=== PATIENT | female | born 2005 | race Hispanic/Latino ===

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

== ENCOUNTER 2023-01-23 15:32 | Emergency (ER) | payer OTHER, SELFPAY ==
--- OUTSIDE RECORDS SUMMARY | 2023-01-23 15:35 | XMS REPORT | Continuity of Care Document ---
:2005 Author Organization [facility] t Address [address] [facility] [address] [place] [address] Care Team Providers Name Role Phone [facility] Primary [facility] Physician Lab, Ang - Db Attending Clinician Unavailable Saige Madden NP Attending Clinician SAIGE MADDEN Attending Clinician Unavailable Doctor Unassigned, [place] Attending Clinician Unavailable Payers Payer Name Policy Type Policy Number Effective Date Expiration Date S ource Problems Condition Condition Condition Status Onset Resolution Last Treating Co mments Source Name Details Category Date Date Treatment Clinician Date Well woman Well woman Disease Active U nivers exam exam 11-07 ity of 00:: [address] BMI BMI Disease Active Univers 25.0-25.9, 25.0-25.9, 11-07 it y of adult adult 00:00: [address] Allergies, Adverse Reactions, Alerts Allergy Allergy Status Severity Reaction(s) Onset Inactive Treating Comm ents Source Name Type Date Date Clinician NO KNOWN Drug Active Univers ALLERGIE Class ity of S [facility] Social History Social Habit Start Date Stop Date Quantity Comments Source History of Cigarette Smoker Universi ty of tobacco use [facility] Exposure to 2022-10-28 2022-11-07 Not sure University of SARS-CoV-2 00:00:00 08:34:[address] [facility] (event) [place] Tobacco use and 2022-11-07 2022-11-07 Smokeless tobacco Un iversity of exposure 00:00:00 00:00:00 non-[address] [facility] Alcohol intake 2022-11-07 2022-11-07 Current drinker Unive rsity of 00:00:00 00:00:[address] [facility] (finding) [place] Tobacco Comment 2022-11-07 2022-11-07 1 cigg a day Univers ity of 00:00:00 00:00:[address] [facility] Alcohol Comment 2022-11-07 2022-11-07 weekends Universit y of 00:00:00 00:00:[address] [facility] Sex Assigned At [birth year] Universit y of 00:00:00 00:00:[address] [facility] Smoking Status Start Date Stop Date Source Tobacco smoking consumption Univ ersity of [facility] unknown [place] Smokes tobacco daily 2022-11-07 00:00:[address] [facility] Medications Ordered Filled Start Stop Current Ordering Indication Dosage Frequency Signature Comments Components Source Medication Medication Date Date Medication? Clinician (SIG) Name Name ondansetron 2015-0 Yes 4mg Take 1 Tab Univers (ZOFRAN, 8- by mouth ity of HYDROCHLORI 00:00: every 8 [place],) 4 mg 00 (eight) Medical tablet hours as Branch needed for Nausea and Vomiting (N/V). dicyclomine 2015-0 Yes 10mg Take 1 Cap Univers (BENTYL) 10 8-01 by mouth ity of mg capsule 00:00: [place] 6 [place] (six[place] Medical hours as Branch needed for Abdominal pain. ondansetron 2015-0 Yes 4mg Take 1 Tab Univers (ZOFRAN, 8-01 by mouth ity of HYDROCHLORI 00:00: every 8 [place],) 4 mg 00 (eight) Medical tablet hours as Branch needed for Nausea and Vomiting (N/V). dicyclomine 2015-0 Yes 10mg Take 1 Cap Univers (BENTYL) 10 8-01 by mouth ity of mg capsule 00:00: [place] 6 [place] (six) Medical hours as Branch needed for Abdominal pain. ondansetron 2015-0 Yes 4mg Take 1 Tab Univers (ZOFRAN, 8-01 by mouth ity of HYDROCHLORI 00:00: every 8 [place],) 4 mg 00 (eight) Medical tablet hours as Branch needed for Nausea and Vomiting (N/V). dicyclomine 2015-0 Yes 10mg Take 1 Cap Univers (BENTYL) 10 8- by mouth ity of mg capsule 00:00: [place] 6 [place] (six) Medical hours as Branch needed for Abdominal pain. ondansetron Yes 4mg Take 1 Tab Univers (ZOFRAN, 02-06 by mouth ity of HYDROCHLORI 00:00: every 8 [place],) 4 mg 00 (eight) Medical tablet hours as Branch needed for Nausea and Vomiting (N/V). dicyclomine Yes 10mg Take 1 Cap Univers (BENTYL) 10 8- by mouth ity of mg capsule 00:00: [place] 6 [place] 00 (six) Medical hours as Branch needed for Abdominal pain. Immunizations Ordered Immunization Filled Immunization Date Status Commen ts Source Name Name SARS-COV-2 COVID-19 2022-03-18 Completed Unive rsity of PFIZER MARSHA-SUCROSE 00:00:00 [place] [facility] VACCINE ([place] TOP) Branch SARS-COV-2 COVID-19 2022-03-18 Completed Unive rsity of PFIZER MARSHA-SUCROSE 00:00:00 [place] [facility] VACCINE ([place] TOP) Branch SARS-COV-2 COVID-19 2022-03-18 Completed Unive rsity of PFIZER MARSHA-SUCROSE 00:00:00 [place] [facility] VACCINE ([place] TOP) Branch Influenza Virus 2022-02-25 Completed Universit y of Vaccine Quad .5 mL IM 00:00:00 [place] as Medical 6+ MO Branch SARS-COV-2 COVID-19 2022-02-25 Completed Unive rsity of PFIZER MARSHA-SUCROSE 00:00:00 [place] [facility] VACCINE ([place] TOP) Branch Influenza Virus 2022-02-25 Completed Universit y of Vaccine Quad .5 mL IM 00:00:00 [place] Medical 6+ MO Branch SARS-COV-2 COVID-19 2022-02-25 Completed Unive rsity of PFIZER MARSHA-SUCROSE 00:00:00 [place] [facility] VACCINE (CAROL[place] TOP) Branch Influenza Virus 2022-02-25 Completed Universit y of Vaccine Quad .5 mL IM 00:00:00 [place] Medical 6+ MO Branch SARS-COV-2 COVID-19 2022-02-25 Completed Unive rsity of PFIZER MARSHA-SUCROSE 00:00:00 [place] [facility] VACCINE (CAR[place] TOP) Branch HPV9 2021-02-25 Completed University of 00:00:[address] [facility] Meningococcal B, OMV 2021-02-25 Completed Univ ersity of 00:00:[address] [facility] TDAP 2021-02-25 Completed University of 00:00:[address] [facility] Branch HPV9 2021-02-25 Completed University of 00:00:[address] [facility] Meningococcal B, OMV 2021-02-25 Completed Univ ersity of 00:00:[address] [facility] TDAP 2021-02-25 Completed University of 00:00:[address] [facility] Branch HPV9 2021-02-25 Completed University of 00:00:[address] [facility] Meningococcal B, OMV 2021-02-25 Completed Univ ersity of 00:00:[address] [facility] TDAP 2021-02-25 Completed University of 00:00:[address] [facility] Meningococcal 2021-02-17 Completed University of Polysaccharide 00:00:00 [place] [facility] (groups A, C, Y and Branc h W-135) conjugate vaccine (MCV4P) Meningococcal 2021-02-17 Completed University of Polysaccharide 00:00:00 [place] [facility] (groups A, C, Y and Branc h W-135) conjugate vaccine (MCV4P) Meningococcal 2021-02-17 Completed University of Polysaccharide 00:00:00 [place] [facility] (groups A, C, Y and Branc h W-135) conjugate vaccine (MCV4P) HPV9 2020-11-22 Completed University of 00:00:[address] [facility] Meningococcal 2020-11-22 Completed University of Polysaccharide 00:00:00 [place] [facility] (groups A, C, Y and Branc h W-135) conjugate vaccine (MCV4P) Meningococcal B, OMV 2020-11-22 Completed Univ ersity of 00:00:[address] [facility] HPV9 2020-11-22 Completed University of 00:00:[address] [facility] Meningococcal 2020-11-22 Completed University of Polysaccharide 00:00:00 [place] [facility] (groups A, C, Y and Branc h W-135) conjugate vaccine (MCV4P) Meningococcal B, OMV 2020-11-22 Completed Univ ersity of 00:00:[address] [facility] HPV9 2020-11-22 Completed University of 00:00:[address] [facility] Meningococcal 2020-11-22 Completed University of Polysaccharide 00:00:00 [facility] dimas (groups A, C, Y and Branc h W-135) conjugate vaccine (MCV4P) Meningococcal B, OMV 2020-11-22 Completed Univ ersity of 00:00:[address] [facility] DTAP 2008-02-20 Completed University of 00:00:[address] [facility] HEPATITIS A 2008-02-20 Completed University of 00:00:[address] [facility] MMR 2008-02-20 Completed University of 00:00:[address] [facility] IPV 2008-02-20 Completed University of 00:00:[address] [facility] Varicella 2008-02-20 Completed University of (varivax)(chicken 00:00:00 [facility] edical pox) Branch DTaP, Unspecified 2008-02-20 Completed Univers ity of Formulation 00:00:[address] [facility] DTAP 2008-02-20 Completed University of 00:00:[address] [facility] HEPATITIS A 2008-02-20 Completed University of 00:00:[address] [facility] MMR 2008-02-20 Completed University of 00:00:[address] [facility] IPV 2008-02-20 Completed University of 00:00:[address] [facility] Varicella 2008-02-20 Completed University of (varivax)(chicken 00:00:00 [place] [facility] pox) Branch DTaP, Unspecified 2008-02-20 Completed Univers ity of Formulation 00:00:[address] [facility] DTAP 2008-02-20 Completed University of 00:00:[address] [facility] HEPATITIS A 2008-02-20 Completed University of 00:00:[address] [facility] MMR 2008-02-20 Completed University of 00:00:[address] [facility] IPV 2008-02-20 Completed University of 00:00:[address] [facility] Varicella 2008-02-20 Completed University of (varivax)(chicken 00:00:00 [place] [facility] pox) Branch DTaP, Unspecified 2008-02-20 Completed Univers ity of Formulation 00:00:[address] [facility] HEPATITIS A 2006-08-15 Completed University of 00:00:[address] [facility] Pneumococcal 7 2006-08-15 Completed University of Conjugate, PCV7 00:00:00 [facility] ical (Prevnar7) Branch HEPATITIS A 2006-08-15 Completed University of 00:00:[address] [facility] Pneumococcal 7 2006-08-15 Completed University of Conjugate, PCV7 00:00:00 [place] [facility] (Prevnar7) Branch HEPATITIS A 2006-08-15 Completed University of 00:00:[address] [facility] Pneumococcal 7 2006-08-15 Completed University of Conjugate, PCV7 00:00:00 [place] [facility] (Prevnar7) Branch Hib-HbOC 2004-11-25 Completed University of 00:00:[address] [facility] IPV 2004-11-25 Completed University of 00:00:[address] [facility] Pneumococcal 7 2004-11-25 Completed University of Conjugate, PCV7 00:00:00 [place] [facility] (Prevnar7) Branch Haemophilus 2004-11-25 Completed University of influenzae type b 00:00:00 [facility] edical vaccine, conjugate Branch unspecified formulation Hib-HbOC 2004-11-25 Completed University of 00:00:[address] [facility] IPV 2004-11-25 Completed University of 00:00:[address] [facility] Pneumococcal 7 2004-11-25 Completed University of Conjugate, PCV7 00:00:00 [place] [facility] (Prevnar7) Branch Haemophilus 2004-11-25 Completed University of influenzae type b 00:00:00 [facility] edical vaccine, conjugate Branch unspecified formulation Hib-HbOC 2004-11-25 Completed University of 00:00:[address] [facility] IPV 2004-11-25 Completed University of 00:00:[address] [facility] Pneumococcal 7 2004-11-25 Completed University of Conjugate, PCV7 00:00:00 [place] [facility] (Prevnar7) Branch Haemophilus 2004-11-25 Completed University of influenzae type b 00:00:00 [facility] edical vaccine, conjugate Branch unspecified formulation IPV 2004-10-11 Completed University of 00:00:[address] [facility] MMR 2004-10-11 Completed University of 00:00:[address] [facility] Varicella 2004-10-11 Completed University of (varivax)(chicken 00:00:00 [facility] edical pox) Branch DTaP, Unspecified 2004-10-11 Completed Univers ity of Formulation 00:00:[address] [facility] DTAP 2004-10-11 Completed University of 00:00:[address] [facility] IPV 2004-10-11 Completed University of 00:00:[address] [facility] MMR 2004-10-11 Completed University of 00:00:[address] [facility] Varicella 2004-10-11 Completed University of (varivax)(chicken 00:00:00 [place] [facility] pox) Branch DTaP, Unspecified 2004-10-11 Completed Univers ity of Formulation 00:00:[address] [facility] DTAP 2004-10-11 Completed University of 00:00:[address] [facility] IPV 2004-10-11 Completed University of 00:00:[address] [facility] MMR 2004-10-11 Completed University of 00:00:[address] [facility] Varicella 2004-10-11 Completed University of (varivax)(chicken 00:00:00 [facility] edical pox) Branch DTaP, Unspecified 2004-10-11 Completed Univers ity of Formulation 00:00:[address] [facility] DTAP 2004-10-11 Completed University of 00:00:[address] [facility] Hep B, Adol or Pedi 2003 Completed Unive rsity of Dosage 00:00:[address] [facility] Hib-HbOC 2003 Completed University of 00:00:[address] [facility] Pneumococcal 7 2003 Completed University of Conjugate, PCV7 00:00:00 [place] [facility] (Prevnar7) Branch Haemophilus 2003 Completed University of influenzae type b 00:00:00 [facility] edical vaccine, conjugate Branch unspecified formulation DTaP, Unspecified 2003 Completed Univers ity of Formulation 00:00:[address] [facility] DTAP 2003 Completed University of 00:00:[address] [facility] Hep B, Adol or Pedi 2003 Completed Unive rsity of Dosage 00:00:[address] [facility] Hib-HbOC 2003 Completed University of 00:00:[address] [facility] Pneumococcal 7 2003 Completed University of Conjugate, PCV7 00:00:00 [place] [facility] ical (Prevnar7) Branch Haemophilus 2003 Completed University of influenzae type b 00:00:00 [facility] edical vaccine, conjugate Branch unspecified formulation DTaP, Unspecified 2003 Completed Univers ity of Formulation 00:00:[address] [facility] DTAP 2003 Completed University of 00:00:[address] [facility] Hep B, Adol or Pedi 2003 Completed Unive rsity of Dosage 00:00:[address] [facility] Hib-HbOC 2003 Completed University of 00:00:[address] [facility] Pneumococcal 7 2003 Completed University of Conjugate, PCV7 00:00:00 [place] [facility] (Prevnar7) Branch Haemophilus 2003 Completed University of influenzae type b 00:00:00 [facility] edical vaccine, conjugate Branch unspecified formulation DTaP, Unspecified 2003 Completed Univers ity of Formulation 00:00:[address] [facility] DTAP 2003 Completed University of 00:00:[address] [facility] Hib-HbOC 2003 Completed University of 00:00:[address] [facility] IPV 2003 Completed University of 00:00:[address] [facility] Pneumococcal 7 2003 Completed University of Conjugate, PCV7 00:00:00 [place] [facility] (Prevnar7) Branch Haemophilus 2003 Completed University of influenzae type b 00:00:00 [facility] edical vaccine, conjugate Branch unspecified formulation DTaP, Unspecified 2003 Completed Univers ity of Formulation 00:00:[address] [facility] DTAP 2003 Completed University of 00:00:[address] [facility] Hib-HbOC 2003 Completed University of 00:00:[address] [facility] IPV 2003 Completed University of 00:00:[address] [facility] Pneumococcal 7 2003 Completed University of Conjugate, PCV7 00:00:00 [place] [facility] (Prevnar7) Branch Haemophilus 2003 Completed University of influenzae type b 00:00:00 [facility] edical vaccine, conjugate Branch unspecified formulation DTaP, Unspecified 2003 Completed Univers ity of Formulation 00:00:[address] [facility] DTAP 2003 Completed University of 00:00:[address] [facility] Hib-HbOC 2003 Completed University of 00:00:[address] [facility] IPV 2003 Completed University of 00:00:[address] [facility] Pneumococcal 7 2003 Completed University of Conjugate, PCV7 00:00:00 [place] [facility] (Prevnar7) Branch Haemophilus 2003 Completed University of influenzae type b 00:00:00 [facility] edical vaccine, conjugate Branch unspecified formulation DTaP, Unspecified 2003 Completed Univers ity of Formulation 00:00:[address] [facility] DTAP 2003 Completed University of 00:00:[address] [facility] Hep B, Adol or Pedi 2003 Completed Unive rsity of Dosage 00:00:[address] [facility] Hib-HbOC 2003 Completed University of 00:00:[address] [facility] DTaP, Unspecified 2003 Completed Univers ity of Formulation 00:00:[address] [facility] DTaP/HIB 2003 Completed University of 00:00:[address] [facility] Hep B, Adol or Pedi 2003 Completed Unive rsity of Dosage 00:00:[address] [facility] Hib-HbOC 2003 Completed University of 00:00:[address] [facility] DTaP, Unspecified 2003 Completed Univers ity of Formulation 00:00:[address] [facility] DTaP/HIB 2003 Completed University of 00:00:[address] [facility] Hep B, Adol or Pedi 2003 Completed Unive rsity of Dosage 00:00:[address] [facility] Hib-HbOC 2003 Completed University of 00:00:[address] [facility] DTaP, Unspecified 2003 Completed Univers ity of Formulation 00:00:[address] [facility] DTaP/HIB 2003 Completed University of 00:00:[address] [facility] Hep B, Adol or Pedi 2003 Completed Unive rsity of Dosage 00:00:[address] [facility] Hep B, Adol or Pedi 2003 Completed Unive rsity of Dosage 00:00:[address] [facility] Hep B, Adol or Pedi 2003 Completed Unive rsity of Dosage 00:00:[address] [facility] Vital Signs Vital Name Observation Time Observation Value Comments Source Systolic blood 2022-11-07 13:48:00 122 mm[Hg] Univer sity of pressure [facility] Diastolic blood 2022-11-07 13:48:00 72 mm[Hg] Unive rsity of pressure [facility] Heart rate 2022-11-07 13:48:00 68 /min Universi ty of [facility] Respiratory rate 2022-11-07 13:48:00 18 /min Univ ersity of [facility] Body height 2022-11-07 13:48:00 167.6 cm [facility] Body weight 2022-11-07 13:48:00 73.029 kg [facility] BMI 2022-11-07 13:48:00 25.99 kg/m2 [facility] Procedures Procedure Date / Time Performed Performing Clinician Rosa e ASSIGNMENT OF BENEFITS 2022-11-07 13:36:10 Doctor Unassigned, No [place] [facility] Name [facility] Encounters Start End Encounter Admission Attending Care Care Encounter Source Date/Time Date/Time Type Type Clinicians Facility Department ID 2022-11-07 2022-11-07 Security Officer Lab, Ang - Db [facility] [id number] [facility] 09:30:00 09:45:00 Visit Saige Madden [id number] 0 ity of [place] [id number] [place] as FRANCHESCA?BLEA [id number] [address] MEDICAL OFFICE BUILDING 2022-11-07 2022-11-07 Outpatient R SAIGE MADDEN [facility] B [id number] [facility] 09:30:00 09:30:00 SAIGE MADDEN ity [facility] 2022-11-07 2022-11-07 Office Phuc [facility] [id number] [facility] 08:30:00 08:57:21 Visit Saige HURLEY [id number] it y of [id number] [facility] [id number] [facility] [address] Branch 2022-11-07 2022-11-07 Orders Doctor GE [id number] Univers 00:00:00 00:00:00 Only Unassigned, SARA [id number] ity of [place] [facility] [id number] [place] as [id number] [place] [id number] Branch Results This patient has no known results.
[2023-01-23] MEDS ORDERED: LIDOCAINE 1% 20 ML MDV ONE (16:31)
--- NOTE | 2023-01-23 17:11 | EDPHYS ---
Physician Documentation [facility] Name: Kavya Zamarripa Age: 17 yrs Sex: Female : 2005 Arrival Date: 01/23/2023 Time: 15:32 Bed 18 Private MD: ED Physician Josh Oreilly HPI: 01/23 16:04 This 17 yrs old Female presents to ER via EMS with complaints of Dog Bite. rn 16:04 The patient was bitten on the right arm. Onset: The symptoms/episode began/occurred rn just prior to arrival. Animal information: The animal was reported to appear healthy. Animal's vaccinations are up to date. The animal is known and can be quarantined. Secondary to the bite the patient reports multiple lacerations, Associated signs and symptoms: Pertinent positives: pain at site. Severity of symptoms: At their worst the symptoms were mild, in the emergency department the symptoms are unchanged. The patient has not experienced similar symptoms in the past. The patient has not recently seen a physician. Pt was breaking up fight between dogs, got bitten by her own dog, vaccines up to date, + 2 small lacerations and even smaller puncture wound to right distal forearm. . Historical: - Allergies: 15:37 No Known Allergies; aa5 - PMHx: 15:37 None; aa5 - PSHx: 15:37 None; aa5 - Immunization history:: Last tetanus immunization: unknown. - Social history:: Smoking status: Patient denies any tobacco usage or history of. - Family history:: not pertinent. - Hospitalizations: : No recent hospitalization is reported. ROS: 16:04 Constitutional: Negative for fever, chills, and weight loss, MS/Extremity: + dog bite rn to right forearm Exam: 16:04 Constitutional: This is a well developed, well nourished patient who is awake, alert, rn and in no acute distress. MS/ Extremity: Pulses equal, no cyanosis. Neurovascular intact. Full, normal range of motion. Equal circumference. 2 small lacerations volar forearm, approx 1cm each, and small subcentimeter puncture wound on dorsum of forearm. No foreign body, no active bleeding. Vital Signs: 15:34 BP 123 / 84; Pulse 69; Resp 16 S; Temp 98.3(TE); Pulse Ox 100% on R/A; Weight 74.84 kg aa5 (R); Height 5 ft. 7 in. (R); 17:29 BP 119 / 75; Pulse 73; Resp 16; Pulse Ox 99% ; bp 15:34 Body Mass Index 25.84 (74.84 kg, 170.18 cm) aa5 Laceration: 17:09 Wound Repair of 1cm ( 0.4in ) subcutaneous laceration to right arm. Distal rn neuro/vascular/tendon intact. Anesthesia: Wound infiltrated with 1 mls of 1% lidocaine. Wound prep: Moderate cleansing with betadine, Wound explored. Skin closed with 2 4-0 Prolene using simple sutures and sterile technique. Dressed with 4x4's, Kerlix. Patient tolerated well. 17:09 Wound Repair of 1.5cm ( 0.6in ) subcutaneous laceration to right arm. Linear shaped.. rn Distal neuro/vascular/tendon intact. Anesthesia: Wound infiltrated with 2 mls of 1% lidocaine. Wound prep: Moderate cleansing with betadine. Skin closed with 2 4-0 Prolene using interrupted sutures and sterile technique. Dressed with 4x4's, Kerlix. Patient tolerated well. MDM: 15:48 Patient medically screened. rn 17:09 Differential diagnosis: superficial laceration. Data reviewed: vital signs, nurses rn notes, radiologic studies, plain films, and as a result, I will discharge patient. Counseling: I had a detailed discussion with the patient and/or guardian regarding: the historical points, exam findings, and any diagnostic results supporting the discharge/admit diagnosis, radiology results, the need for outpatient follow up, to return to the emergency department if symptoms worsen or persist or if there are any questions or concerns that arise at home. Response to treatment: the patient's symptoms have markedly improved after treatment, and as a result, I will discharge patient. Special discussion: I discussed with the patient/guardian in detail that at this point there is no indication for admission to the hospital. It is understood, however, that if the symptoms persist or worsen the patient needs to return immediately for re-evaluation. 01/23 15:53 Order name: XRAY Forearm RIGHT rn 01/23 15:53 Order name: Wound Care; Complete Time: 17:18 rn 01/23 15:53 Order name: Suture Tray at Bedside; Complete Time: 17:18 rn Administered Medications: 16:26 Drug: Lidocaine Infiltration (1 %) 1 vials {Note: at b/s.} Volume: 20 ml; Route: bp Infiltration; Disposition Summary: 01/23/23 17:11 Discharge Ordered Location: Home rn Problem: new rn Symptoms: have improved rn Condition: Stable rn Diagnosis - Bitten by dog rn - Laceration without foreign body of right forearm rn Followup: rn - With: Emergency Department - When: 14 days - Reason: Staple/Suture removal Discharge Instructions: - Discharge Summary Sheet rn - Laceration Care, Adult rn - Sutured quality intern Forms: - Medication Reconciliation Form rn - Thank You Letter rn - Antibiotic marketing pr intern - Prescription Opioid Use rn - Patient Portal Instructions rn Prescriptions: - Cephalexin 500 mg Oral Capsule - take 1 capsule by ORAL route every 12 hours for 10 days; 20 capsule; Refills: rn 0, Product Selection Permitted Signatures: Dispatcher [employer] Josh Emanuel MD MD rn Calderon, Audri, RN RN aa5 Chandu Aleman RN RN bp
--- NOTE | 2023-01-23 17:11 | ER ---
Nurse's Notes [facility] Name: Kavya Zamarripa Age: 17 yrs Sex: Female : 2005 Arrival Date: 01/23/2023 Time: 15:32 Bed 18 Private MD: Diagnosis: Bitten by dog;Laceration without foreign body of right forearm Presentation: 01/23 15:34 Chief complaint: EMS states: pt was breaking up two dogs, the bigger dog bit her right iw forearm, 3 small lacerations noted, animal control was contacted RN CLINICIAN. Coronavirus screen: At this time, the client does not indicate any symptoms associated with coronavirus-19. Ebola Screen: Patient negative for fever greater than or equal to 101.5 degrees Fahrenheit, and additional compatible Ebola Virus Disease symptoms Patient denies exposure to infectious person. Patient denies travel to an Ebola-affected area in the 21 days before illness onset. No symptoms or risks identified at this time. 15:34 Method Of Arrival: EMS: [facility] 15:34 Acuity: CORDELIA 4 aa5 15:34 Initial Sepsis Screen: Does the patient meet any 2 criteria? No. Patient's initial aa5 sepsis screen is negative. Does the patient have a suspected source of infection? No. Patient's initial sepsis screen is negative. Risk Assessment: Do you want to hurt yourself or someone else? Patient reports no desire to harm self or others. Onset of symptoms was January 23, 2023. Triage Assessment: 15:40 Bite description: bite sustained to right arm by a dog, animal information: bp vaccination(s) is current. General: Appears in no apparent distress. Behavior is appropriate for age. Pain: Complains of pain in right arm. EENT: No deficits noted. Neuro: No deficits noted. Cardiovascular: No deficits noted. Respiratory: No deficits noted. GI: No signs and/or symptoms were reported involving the gastrointestinal system. : No signs and/or symptoms were reported regarding the genitourinary system. Derm: No deficits noted. Musculoskeletal: No deficits noted. Injury Description: Bite sustained to right arm. Historical: - Allergies: 15:37 No Known Allergies; aa5 - PMHx: 15:37 None; aa5 - PSHx: 15:37 None; aa5 - Immunization history:: Last tetanus immunization: unknown. - Social history:: Smoking status: Patient denies any tobacco usage or history of. - Family history:: not pertinent. - Hospitalizations: : No recent hospitalization is reported. Screenin:27 [facility] ED Fall Risk Assessment (Adult) History of falling in the last 3 months, bp including since admission No falls in past 3 months (0 pts). Abuse screen: Denies threats or abuse. Denies injuries from another. Nutritional screening: No deficits noted. Tuberculosis screening: No symptoms or risk factors identified. Assessment: 15:40 General: SEE TRIAGE NOTE. bp 17:27 Reassessment: DC HOME AMBULATORY. Derm: Skin is intact, is healthy with good turgor, bp Skin is pink, warm \T\ dry. Vital Signs: 15:34 BP 123 / 84; Pulse 69; Resp 16 S; Temp 98.3(TE); Pulse Ox 100% on R/A; Weight 74.84 kg aa5 (R); Height 5 ft. 7 in. (R); 17:29 BP 119 / 75; Pulse 73; Resp 16; Pulse Ox 99% ; bp 15:34 Body Mass Index 25.84 (74.84 kg, 170.18 cm) aa5 ED Course: 15:33 Patient arrived in ED. iw 15:34 Arm band placed on. aa5 15:36 Triage completed. aa5 15:45 Patient has correct armband on for positive identification. Bed in low position. Call bp light in reach. Side rails up X2. 15:45 No provider procedures requiring assistance completed. Patient did not have IV access bp during this emergency room visit. 15:48 Josh Oreilly MD is Attending Physician. rn 16:09 Chandu Aleman, THANH is Primary Nurse. bp 16:33 XRAY Forearm RIGHT In Process Unspecified. EDMS Administered Medications: 16:26 Drug: Lidocaine Infiltration (1 %) 1 vials {Note: at b/s.} Volume: 20 ml; Route: bp Infiltration; Medication: 17:27 VIS not applicable for this client. bp Outcome: 17:11 Discharge ordered by . rn 17:20 Discharged to home ambulatory. bp 17:20 Condition: stable 17:20 Discharge instructions given to patient, Instructed on discharge instructions, follow up and referral plans. medication usage, wound care, Demonstrated understanding of instructions, follow-up care, medications, wound care, Prescriptions given X 1. 17:29 Patient left the ED. bp Signatures: Dispatcher [employer] Krystina Mccloud, RN RN Josh Munoz MD MD rn Calderon, Audri, RN RN aa5 Chandu Aleman RN RN bp
--- NOTE | 2023-01-23 17:28 | RAD REPORT ---
EXAM DESCRIPTION: RAD - Forearm Right - 01/23/2023 4:31 pm CLINICAL HISTORY: PAIN COMPARISON: <Comparisons> FINDINGS: Mild soft tissue swelling is seen along the dorsum of the distal forearm. No fracture or r adiopaque foreign body.
[2023-01-23 18:25] VITALS: TEMP 98.3
[2023-01-23 18:26] VITALS: BP 119/75; O2SAT 99
== END 2023-01-23 17:29 | disposition home or self-care (01) ==
LOC: ER 15:32
PROC: 0HQDXZZ Repair Right Lower Arm Skin, External Approach (ICD-10-PCS; principal; 2023-01-23)
DX: S51.811A Laceration without foreign body of right forearm, initial encounter (principal); W54.0XXA Bitten by dog, initial encounter
CPT/HCPCS: 73090; 99284; 12001; J2001

== ENCOUNTER 2023-02-07 12:15 | Emergency (ER) | payer OTHER ==
--- OUTSIDE RECORDS SUMMARY | 2023-02-07 12:21 | XMS REPORT | Continuity of Care Document ---
:2005 Author Organization [facility] t Address [address] [facility] [place] [address] [place] [address] Care Team Providers Name Role Phone Mercy Kayleigh Primary Care Physician Lab, Ang - Db Attending Clinician Unavailable Phuc BOAT OPERATOR, Saige Attending Clinician SAIGE MADDEN Attending Clinician Unavailable Doctor Unassigned, [place] Attending Clinician Unavailable Payers Payer Name Policy Type Policy Number Effective Date Expiration Date S ource Problems Condition Condition Condition Status Onset Resolution Last Treating Co mments Source Name Details Category Date Date Treatment Clinician Date Well woman Well woman Disease Active U nivers exam exam 11-07 ity of 00:00: [address] BMI BMI Disease Active Univers 25.0-25.9, 25.0-25.9, 11-07 it y of adult adult 00:00: [address] Allergies, Adverse Reactions, Alerts Allergy Allergy Status Severity Reaction(s) Onset Inactive Treating Comm ents Source Name Type Date Date Clinician NO KNOWN Drug Active Univers ALLERGIE Class ity of S [facility] Social History Social Habit Start Date Stop Date Quantity Comments Source History of Cigarette Smoker Universi ty of tobacco use [facility] Exposure to 2022-10-28 2022-11-07 Not sure University of SARS-CoV-2 00:00:00 08:34:00 [facility] (event) [place] Tobacco use and 2022-11-07 2022-11-07 Smokeless tobacco Un iversity of exposure 00:00:00 00:00:00 non-user [facility] Alcohol intake 2022-11-07 2022-11-07 Current drinker Unive rsity of 00:00:00 00:00:00 of alcohol [facility] (finding) [place] Tobacco Comment 2022-11-07 2022-11-07 1 cigg a day Univers ity of 00:00:00 00:00:00 [facility] Alcohol Comment 2022-11-07 2022-11-07 weekends Universit y of 00:00:00 00:00:00 [facility] Sex Assigned At [birth year] Universit y of 00:00:00 00:00:00 [facility] Smoking Status Start Date Stop Date Source Tobacco smoking consumption Univ ersity of [facility] unknown Branch Smokes tobacco daily 2022-11-07 00:00:00 Univers ity of [facility] Medications Ordered Filled Start Stop Current Ordering [...] needed for Nausea and Vomiting (N/V). dicyclomine 2014-0 Yes 10mg Take 1 Cap Univers (BENTYL) 10 8-01 by mouth ity of mg capsule 00:00: [place] 6 [place] ([place] Medical hours as Branch needed for Abdominal pain. ondansetron 0 Yes 4mg Take 1 Tab Univers (ZOFRAN, 8- by mouth ity of HYDROCHLORI 00:00: every 8 [place] as [place],) 4 mg 00 (eight) Medical tablet hours as Branch needed for Nausea and Vomiting (N/V). dicyclomine 2014-0 Yes 10mg Take 1 Cap Univers (BENTYL) [...] Branch HPV9 2021-02-25 Completed University of 00:00:00 [facility] Branch Meningococcal B, OMV 2021-02-25 Completed Univ ersity of 00:00:00 [facility] Branch TDAP 2021-02-25 Completed University of 00:00:00 [facility] Branch HPV9 2021-02-25 Completed University of 00:00:00 [facility] Branch Meningococcal B, OMV 2021-02-25 Completed Univ ersity of 00:00:00 [facility] Branch TDAP 2021-02-25 Completed University of 00:00:00 [facility] Branch HPV9 2021-02-25 Completed University of 00:00:00 [facility] Branch Meningococcal B, OMV 2021-02-25 Completed Univ ersity of 00:00:00 [facility] Branch TDAP 2021-02-25 Completed University of 00:00:00 [facility] Branch Meningococcal 2021-02-17 Completed University of Polysaccharide 00:00:00 [place] [facility] (groups A, C, Y and Branc h W-135) conjugate vaccine (MCV4P) Meningococcal 2021-02-17 Completed University of Polysaccharide 00:00:00 [place] [facility] (groups A, C, Y and Branc h W-135) conjugate vaccine (MCV4P) Meningococcal 2021-02-17 Completed University of Polysaccharide 00:00:00 [place] [facility] (groups A, C, Y and Branc h W-135) conjugate vaccine (MCV4P) HPV9 2020-11-22 Completed University of 00:00:00 [facility] Branch Meningococcal 2020-11-22 Completed University of Polysaccharide 00:00:00 [place] [facility] (groups A, C, Y and Branc h W-135) conjugate vaccine (MCV4P) Meningococcal B, OMV 2020-11-22 Completed Univ ersity of 00:00:00 [facility] Branch HPV9 2020-11-22 Completed University of 00:00:00 [facility] Branch Meningococcal 2020-11-22 Completed University of Polysaccharide 00:00:00 [place] [facility] (groups A, C, Y and Branc h W-135) conjugate vaccine (MCV4P) Meningococcal B, OMV 2020-11-22 Completed Univ ersity of 00:00:00 [facility] Branch HPV9 2020-11-22 Completed University of 00:00:00 [facility] Meningococcal 2020-11-22 Completed University of Polysaccharide 00:00:00 [facility] dimas (groups A, C, Y and Branc h W-135) conjugate vaccine (MCV4P) Meningococcal B, OMV 2020-11-22 Completed Univ ersity of 00:00:00 [facility] DTAP 2008-02-20 Completed University of 00:00:00 [facility] HEPATITIS A 2008-02-20 Completed University of 00:00:00 [facility] MMR 2008-02-20 Completed University of 00:00:00 [facility] IPV 2008-02-20 Completed University of 00:00:00 [facility] Varicella 2008-02-20 Completed University of (varivax)(chicken 00:00:00 [place] [facility] pox) Branch DTaP, Unspecified 2008-02-20 Completed Univers ity of Formulation 00:00:00 [facility] DTAP 2008-02-20 Completed University of 00:00:00 [facility] HEPATITIS A 2008-02-20 Completed University of 00:00:00 [facility] MMR 2008-02-20 Completed University of 00:00:00 [facility] IPV 2008-02-20 Completed University of 00:00:00 [facility] Varicella 2008-02-20 Completed University of (varivax)(chicken 00:00:00 [place] [facility] pox) Branch DTaP, Unspecified 2008-02-20 Completed Univers ity of Formulation 00:00:00 [facility] DTAP 2008-02-20 Completed University of 00:00:00 [facility] HEPATITIS A 2008-02-20 Completed University of 00:00:00 [facility] MMR 2008-02-20 Completed University of 00:00:00 [facility] IPV 2008-02-20 Completed University of 00:00:00 [facility] Varicella 2008-02-20 Completed University of (varivax)(chicken 00:00:00 [place] [facility] pox) Branch DTaP, Unspecified 2008-02-20 Completed Univers ity of Formulation 00:00:00 [facility] HEPATITIS A 2006-08-15 Completed University of 00:00:00 [facility] Pneumococcal 7 2006-08-15 Completed University of Conjugate, PCV7 00:00:00 [facility] ical (Prevnar7) Branch HEPATITIS A 2006-08-15 Completed University of 00:00:00 [facility] Pneumococcal 7 2006-08-15 Completed University of Conjugate, PCV7 00:00:00 [place] [facility] (Prevnar7) Branch HEPATITIS A 2006-08-15 Completed University of 00:00:00 [facility] Pneumococcal 7 2006-08-15 Completed University of Conjugate, PCV7 00:00:00 [place] [facility] (Prevnar7) Branch Hib-HbOC 2004-11-25 Completed University of 00:00:00 [facility] IPV 2004-11-25 Completed University of 00:00:00 [facility] Pneumococcal 7 2004-11-25 Completed University of Conjugate, PCV7 00:00:00 [place] [facility] (Prevnar7) Branch Haemophilus 2004-11-25 Completed University of influenzae type b 00:00:00 [facility] edical vaccine, conjugate Branch unspecified formulation Hib-HbOC 2004-11-25 Completed University of 00:00:00 [facility] IPV 2004-11-25 Completed University of 00:00:00 [facility] Pneumococcal 7 2004-11-25 Completed University of Conjugate, PCV7 00:00:00 [place] [facility] (Prevnar7) Branch Haemophilus 2004-11-25 Completed University of influenzae type b 00:00:00 [facility] edical vaccine, conjugate Branch unspecified formulation Hib-HbOC 2004-11-25 Completed University of 00:00:00 [facility] IPV 2004-11-25 Completed University of 00:00:00 [facility] Pneumococcal 7 2004-11-25 Completed University of Conjugate, PCV7 00:00:00 [place] [facility] (Prevnar7) Branch Haemophilus 2004-11-25 Completed University of influenzae type b 00:00:00 [facility] edical vaccine, conjugate Branch unspecified formulation IPV 2004-10-11 Completed University of 00:00:00 [facility] MMR 2004-10-11 Completed University of 00:00:00 [facility] Varicella 2004-10-11 Completed University of (varivax)(chicken 00:00:00 [facility] edical pox) Branch DTaP, Unspecified 2004-10-11 Completed Univers ity of Formulation 00:00:00 [facility] DTAP 2004-10-11 Completed University of 00:00:00 [facility] IPV 2004-10-11 Completed University of 00:00:00 [facility] MMR 2004-10-11 Completed University of 00:00:00 [facility] Varicella 2004-10-11 Completed University of (varivax)(chicken 00:00:00 [place] [facility] [place] pox) Branch DTaP, Unspecified 2004-10-11 Completed Univers ity of Formulation 00:00:00 [facility] DTAP 2004-10-11 Completed University of 00:00:00 [facility] IPV 2004-10-11 Completed University of 00:00:00 [facility] MMR 2004-10-11 Completed University of 00:00:00 [facility] Varicella 2004-10-11 Completed University of (varivax)(chicken 00:00:00 [facility] edical pox) Branch DTaP, Unspecified 2004-10-11 Completed Univers ity of Formulation 00:00:00 [facility] DTAP 2004-10-11 Completed University of 00:00:00 [facility] Hep B, Adol or Pedi 2003 Completed Unive rsity of Dosage 00:00:00 [facility] Hib-HbOC 2003 Completed University of 00:00:00 [facility] Pneumococcal 7 2003 Completed University of Conjugate, PCV7 00:00:00 [place] [facility] (Prevnar7) Branch Haemophilus 2003 Completed University of influenzae type b 00:00:00 [facility] edical vaccine, conjugate Branch unspecified formulation DTaP, Unspecified 2003 Completed Univers ity of Formulation 00:00:00 [facility] DTAP 2003 Completed University of 00:00:00 [facility] Hep B, Adol or Pedi 2003 Completed Unive rsity of Dosage 00:00:00 [facility] Hib-HbOC 2003 Completed University of 00:00:00 [facility] Pneumococcal 7 2003 Completed University of Conjugate, PCV7 00:00:00 [place] [facility] (Prevnar7) Branch Haemophilus 2003 Completed University of influenzae type b 00:00:00 [facility] edical vaccine, conjugate Branch unspecified formulation DTaP, Unspecified 2003 Completed Univers ity of Formulation 00:00:00 [facility] DTAP 2003 Completed University of 00:00:00 [facility] Hep B, Adol or Pedi 2003 Completed Unive rsity of Dosage 00:00:00 [facility] Hib-HbOC 2003 Completed University of 00:00:00 [facility] Pneumococcal 7 2003 Completed University of Conjugate, PCV7 00:00:00 [place] [facility] [facility] (Prevnar7) Branch Haemophilus 2003 Completed University of influenzae type b 00:00:00 [facility] edical vaccine, conjugate Branch unspecified formulation DTaP, Unspecified 2003 Completed Univers ity of Formulation 00:00:00 [facility] DTAP 2003 Completed University of 00:00:00 [facility] Hib-HbOC 2003 Completed University of 00:00:00 [facility] IPV 2003 Completed University of 00:00:00 [facility] Pneumococcal 7 2003 Completed University of Conjugate, PCV7 00:00:00 [place] [facility] [facility] (Prevnar7) [place] Haemophilus 2003 Completed University of influenzae type b 00:00:00 [facility] edical vaccine, conjugate Branch unspecified formulation DTaP, Unspecified 2003 Completed Univers ity of Formulation 00:00:00 [facility] DTAP 2003 Completed University of 00:00:00 [facility] Hib-HbOC 2003 Completed University of 00:00:00 [facility] IPV 2003 Completed University of 00:00:00 [facility] Pneumococcal 7 2003 Completed University of Conjugate, PCV7 00:00:00 [place] [facility] [facility] (Prevnar7) Branch Haemophilus 2003 Completed University of influenzae type b 00:00:00 [facility] edical vaccine, conjugate Branch unspecified formulation DTaP, Unspecified 2003 Completed Univers ity of Formulation 00:00:00 [facility] DTAP 2003 Completed University of 00:00:00 [facility] Hib-HbOC 2003 Completed University of 00:00:00 [facility] IPV 2003 Completed University of 00:00:00 [facility] Pneumococcal 7 2003 Completed University of Conjugate, PCV7 00:00:00 [place] [facility] (Prevnar7) Branch Haemophilus 2003 Completed University of influenzae type b 00:00:00 [facility] edical vaccine, conjugate Branch unspecified formulation DTaP, Unspecified 2003 Completed Univers ity of Formulation 00:00:00 [facility] Branch DTAP 2003 Completed University of 00:00:00 [facility] Hep B, Adol or Pedi 2003 Completed Unive rsity of Dosage 00:00:00 [facility] Branch Hib-HbOC 2003 Completed University of 00:00:00 [facility] DTaP, Unspecified 2003 Completed Univers ity of Formulation 00:00:00 [facility] DTaP/HIB 2003 Completed University of 00:00:00 [facility] Branch Hep B, Adol or Pedi 2003 Completed Unive rsity of Dosage 00:00:00 [facility] Hib-HbOC 2003 Completed University of 00:00:00 [facility] DTaP, Unspecified 2003 Completed Univers ity of Formulation 00:00:00 [facility] DTaP/HIB 2003 Completed University of 00:00:00 [facility] Hep B, Adol or Pedi 2003 Completed Unive rsity of Dosage 00:00:00 [facility] Hib-HbOC 2003 Completed University of 00:00:00 [facility] DTaP, Unspecified 2003 Completed Univers ity of Formulation 00:00:00 [facility] DTaP/HIB 2003 Completed University of 00:00:00 [facility] Hep B, Adol or Pedi 2003 Completed Unive rsity of Dosage 00:00:00 [facility] Hep B, Adol or Pedi 2003 Completed Unive rsity of Dosage 00:00:00 [facility] Branch Hep B, Adol or Pedi 2003 Completed Unive rsity of Dosage 00:00:00 [facility] Vital Signs Vital Name Observation Time Observation Value Comments Source Systolic blood 2022-11-07 13:48:00 122 mm[Hg] Univer sity of pressure [facility] Diastolic blood 2022-11-07 13:48:00 72 mm[Hg] Unive rsity of pressure [facility] Heart rate 2022-11-07 13:48:00 68 /min Universi ty of [facility] Respiratory rate 2022-11-07 13:48:00 18 /min Univ ersity of [facility] Body height 2022-11-07 13:48:00 167.6 cm [facility] Body weight 2022-11-07 13:48:00 73.029 kg [facility] BMI 2022-11-07 13:48:00 25.99 kg/m2 [facility] Procedures Procedure Date / Time Performed Performing Clinician Sour e ASSIGNMENT OF BENEFITS 2022-11-07 13:36:10 Doctor Unassigned, No [facility] Encounters Start End Encounter Admission Attending Care Care Encounter Source Date/Time Date/Time Type Type Clinicians Facility Department ID 2022-11-07 2022-11-07 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 [id number] 0 ity of [place] [id number] [place] as FRANCHESCA?BLEA [id number] [address] MEDICAL OFFICE BUILDING 2022-11-07 2022-11-07 Outpatient R SAIGE MADDEN [facility] B [id number] Univers 09:30:00 09:30:00 SAIGE MADDEN ity [facility] 2022-11-07 2022-11-[address] [facility] [id number] Univers 08:30:00 08:57:21 Visit Saige HURLEY [id number] it y of [id number] [facility] [id number] [facility] [address] Branch 2022-11-07 2022-11-07 Orders Doctor GE [id number] Univers 00:00:00 00:00:00 Only Unassigned, SARA [id number] ity of [place] [facility] [id number] [place] as [id number] [facility] [address] Branch Results This patient has no known results.
[2023-02-07 12:48] LABS: Specific Gravity 1.028 (1.005-1.030)
--- NOTE | 2023-02-07 12:54 | ER ---
Nurse's Notes [facility] Name: Kavya Zamarripa Age: 17 yrs Sex: Female : 2005 Arrival Date: 02/07/2023 Time: 12:15 Bed IW2 Private MD: Diagnosis: Encounter for removal of sutures;Encounter for test, result negative Presentation: 02/07 12:26 Chief complaint: Patient states: suture removal. Coronavirus screen: Vaccine status: la1 Patient reports receiving the 2nd dose of the covid vaccine. At this time, the client does not indicate any symptoms associated with coronavirus-19. Ebola Screen: No symptoms or risks identified at this time. Initial Sepsis Screen: Does the patient meet any 2 criteria? No. Patient's initial sepsis screen is negative. Does the patient have a suspected source of infection? No. Patient's initial sepsis screen is negative. Risk Assessment: Do you want to hurt yourself or someone else? Patient reports no desire to harm self or others. Onset of symptoms is unknown. 12:26 Method Of Arrival: Ambulatory [facility] 12:26 Acuity: CORDELIA 5 [facility] Triage Assessment: 12:27 General: Appears in no apparent distress. comfortable, well groomed, well developed, me1 well nourished, Behavior is calm, cooperative, appropriate for age, Reports got bit by her dog about 2 weeks ago and has sutures that need removed from her RFA. Denies fever, feeling ill, fatigue, chills. Pain: Denies pain. Neuro: Level of Consciousness is awake, alert, obeys commands, Oriented to person, place, time, situation. Cardiovascular: Capillary refill < 3 seconds Patient's skin is warm and dry. Respiratory: Respiratory effort is even, unlabored, Respiratory pattern is regular, symmetrical. 12:30 General: reports some abdominal pain and cannot remember when her last period was. me1 Would like a test. . Historical: - Allergies: 12:27 No Known Allergies; me1 - Home Meds: 12:27 None [Active]; me1 - PMHx: 12:27 None; me1 - PSHx: 12:27 None; me1 - Immunization history:: Adult Immunizations up to date. - Social history:: Smoking status: Patient/guardian denies using tobacco, but has a distant history of tobacco abuse. Screenin:31 [facility] ED Fall Risk Assessment (Adult) Score/Fall Risk Level 0 - 2 = Low Risk. Abuse me1 screen: Denies threats or abuse. Nutritional screening: No deficits noted. Tuberculosis screening: No symptoms or risk factors identified. Assessment: 12:31 Reassessment: No changes from previously documented assessment. General: see triage me1 assessment. . Vital Signs: 12:26 BP 114 / 76; Pulse 85; Resp 16; Temp 98.4(O); Pulse Ox 100% on R/A; Weight 72.57 kg; me1 Height 5 ft. 6 in. ; Pain 0/10; 12:31 BP 114 / 76; Pulse 85; Resp 16; Temp 98.4; Pulse Ox 100% ; me1 12:26 Body Mass Index 25.82 (72.57 kg, 167.64 cm) me1 12:26 Pain Scale: Adult me1 ED Course: 12:19 Patient arrived in ED. mr 12:22 [facility] Goldstein [facility]C [facility] sb4 12:22 Josh Oreilly MD is Attending Physician. sb4 12:27 Triage completed. me1 12:31 Patient has correct armband on for positive identification. Provided Education on: on me1 suture removal. . 12:31 No provider procedures requiring assistance completed. Patient did not have IV access me1 during this emergency room visit. 12:39 Test, Urine Sent. me1 Administered Medications: No medications were administered Medication: 12:31 VIS not applicable for this client. me1 Outcome: 12:53 Discharge ordered by . sb4 12:56 Patient left the ED. me1 Signatures: Colleen Lange mr Lynnette Goldstein PA-C PA-C sb4 Alicia Donnelly RN RN me1 Corrections: (The following items were deleted from the chart) 12:30 12:27 LMP 01/06/2023 me1 me1
--- NOTE | 2023-02-07 12:54 | EDPHYS ---
Physician Documentation [facility] Name: Kavya Zamarripa Age: 17 yrs Sex: Female : 2005 Arrival Date: 02/07/2023 Time: 12:15 Bed IW2 Private MD: ED Physician Josh Oreilly HPI: 02/07 12:44 This 17 yrs old Female presents to ER via Ambulatory with complaints of Suture sb4 Removal. 12:44 The patient has sutures on the right arm. Previous treatment: The patient was initially sb4 treated 14 day(s) ago, the care was rendered at [facility], Treatment type: The patient's original treatment included sutures, Outpatient prescription(s): The patient was given prescription(s) for nothing, Previous recheck: the patient has not been checked since the original treatment. Sutures/marita progress: The patient has no c/o's. The wound is well-healing with no redness, swelling, discharge, or dehiscence reported. The patient has been recently seen at the [facility] Emergency Department, a couple of weeks ago. Historical: - Allergies: 12:27 No Known Allergies; me1 - Home Meds: 12:27 None [Active]; me1 - PMHx: 12:27 None; me1 - PSHx: 12:27 None; me1 - Immunization history:: Adult Immunizations up to date. - Social history:: Smoking status: Patient/guardian denies using tobacco, but has a distant history of tobacco abuse. ROS: 12:44 Constitutional: Negative for fever, chills, and weight loss. sb4 12:44 : Positive for missed period. 12:44 Skin: Positive for laceration(s), Negative for rash, swelling. Exam: 12:44 Constitutional: This is a well developed, well nourished patient who is awake, alert, sb4 and in no acute distress. Head/Face: Normocephalic, atraumatic. 12:44 Skin: injury, laceration(s), the wound is approximately 1.5 cm(s), the second wound is approximately 1.5 cm(s), both with 2 sutures, intact, well healing. Vital Signs: 12:26 BP 114 / 76; Pulse 85; Resp 16; Temp 98.4(O); Pulse Ox 100% on R/A; Weight 72.57 kg; me1 Height 5 ft. 6 in. ; Pain 0/10; 12:31 BP 114 / 76; Pulse 85; Resp 16; Temp 98.4; Pulse Ox 100% ; me1 12:26 Body Mass Index 25.82 (72.57 kg, 167.64 cm) me1 12:26 Pain Scale: Adult me1 Procedures: 12:44 Suture/Staple removal: Removed 4 sutures, from right arm, site appears well healed, sb4 dressed with Neosporin, Patient tolerated well. MDM: 12:22 Patient medically screened. sb4 12:47 ED course: patient here for suture removal but afterwards requested UPT as she thinks sb4 her period is late and is experiencing some abdominal cramping. 12:52 Data reviewed: vital signs, nurses notes, lab test result(s), Beta HCG: negative and as sb4 a result, I will discharge patient. Counseling: I had a detailed discussion with the patient and/or guardian regarding: the historical points, exam findings, and any diagnostic results supporting the discharge/admit diagnosis, lab results, to return to the emergency department if symptoms worsen or persist or if there are any questions or concerns that arise at home. 02/07 12:32 Order name: Test, Urine; Complete Time: 12:52 sb4 Administered Medications: No medications were administered Disposition: 12:58 Co-signature as Attending Physician, Josh Oreilly MD I reviewed the patient's care rn provided by the Advanced Practice Provider and agree with the diagnosis and treatment plan. Disposition Summary: 02/07/23 12:53 Discharge Ordered Location: Home sb4 Problem: new sb4 Symptoms: have improved sb4 Condition: Stable sb4 Diagnosis - Encounter for removal of sutures sb4 - Encounter for test, result negative sb4 Followup: sb4 - With: Private Physician - When: As needed - Reason: Recheck today's complaints, Continuance of care, Re-evaluation by your physician Discharge Instructions: - Discharge Summary Sheet sb4 - Suture Removal, Care After sb4 Forms: - Medication Reconciliation Form sb4 - Thank You Letter sb4 - Antibiotic Education sb4 - Prescription Opioid Use sb4 - Patient Portal Instructions sb4 Signatures: Dispatcher [employer] EDJosh Burgess MD MD rn Brown, Sophia, JESUS MANUEL PA-C sb4 Alicia Donnelyl, RN RN me1
[2023-02-07 13:02] VITALS: BP 114/76; TEMP 98.4; O2SAT 100
== END 2023-02-07 12:56 | disposition home or self-care (01) ==
LOC: ER 12:15
DX: Z48.02 Encounter for removal of sutures (principal); Z32.02 Encounter for pregnancy test, result negative
CPT/HCPCS: 81025

== ENCOUNTER 2023-06-21 09:26 | Emergency (ER) | payer BC, SELFPAY ==
--- OUTSIDE RECORDS SUMMARY | 2023-06-21 09:34 | XMS REPORT | Continuity of Care Document ---
Author Name Unknown Address [address] [facility] [address] [place] [address] [facility] thconnect Address [address] [facility] [place] [address] Care Team Providers Care Tank House Supervisor Name Role Phone PCP, PATIENT DOES NOT HAVE A Primary Care Physic melissa Unavailable DULCE MARIA SULLIVAN Attending Clinician DULCE MARIA Daniel Attending Clinician Wendy mckeon Lab, Ang - Db Attending Clinician Unavailable Doctor Unassigned, [place] Attending Clinician Lisa Phillip NP Attending Clinician [phone] LISA MADDEN Attending Clinician Barry ble Payers Payer Name Policy Type Policy Number Effective Date Expirati on Date Source [facility] [id number] 2021 00:00:00 [facility] [id number] 2022 00:00:00 2023 00:00:00 Problems Condition Name Condition Details Condition Category Status Onset Date Resolution Date Last Treatment Date Treating Clinician Comments Source Well woman exam Well woman exam Disease Active 11-07 00:00: 00 [facility] BMI 25.0-25.9, adult BMI 25.0-25.9, adult Disease Active 11-07 00:00: 00 [facility] Allergies, Adverse Reactions, Alerts Allergy Name Allergy Type Status Severity Reaction(s) Onset Date Inactive Date Treating Clinician Comments Source NO KNOWN ALLERGIE S Drug Class Active [facility] Social History Social Habit Start Date Stop Date Quantity Comments Source ASSERTION 2023-03-08 00:00:00 [facility] History of tobacco use Cigarette Smoker [facility] intake 2023-06-05 00:00:00 2023-06-05 00:00:00 Current drinker of alcohol (finding) [facility] Exposure to SARS-CoV-2 (event) 2022-10-28 00:00:00 2022-11-07 08:34:00 Not sure [facility] History of Social function 2022-11-07 00:00:00 2022-11-07 00:00:00 [facility] Tobacco use and exposure 2022-11-07 00:00:00 2022-11-07 00:00:00 Smokeless tobacco non-user [facility] Tobacco Comment 2022-11-07 00:00:00 2022-11-07 00:00:00 1 cigg a day [facility] Alcohol Comment 2022-11-07 00:00:00 2022-11-07 00:00:00 weekends [facility] Sex Assigned At 2003 00:00:00 2003 00:00:00 [facility] Smoking Status Start Date Stop Date Source Tobacco smoking consumption unknown [facility] Smokes tobacco daily 2022-11-07 00:00:00 [facility] Medications Ordered Medication Name Filled Medication Name Start Date Stop Date Current Medication? Ordering Clinician Indication Dosage Frequency Signature (SIG) Comments Components Source acetaminoph en-codeine 300-30 mg tablet 2022-07 00:00: 00 Yes TAKE 1 TABLET BY MOUTH EVERY 6-8 HOURS NEEDED FOR PAIN [facility] amoxicillin 500 mg capsule 2022-07 00:00: 00 Yes 500mg Take 1 capsule by mouth in the morning and 1 capsule at noon and 1 capsule in the evening. [facility] acetaminoph en-codeine 300-30 mg tablet 2022-07 00:00: 00 Yes TAKE 1 TABLET BY MOUTH EVERY 6-8 HOURS NEEDED FOR PAIN [facility] amoxicillin 500 mg capsule 2022-07 00:00: 00 Yes 500mg Take 1 capsule by mouth in the morning and 1 capsule at noon and 1 capsule in the evening. [facility] acetaminoph en-codeine 300-30 mg tablet 2022-07 00:00: 00 Yes TAKE 1 TABLET BY MOUTH EVERY 6-8 HOURS NEEDED FOR PAIN [facility] amoxicillin 500 mg capsule 2022-07 00:00: 00 Yes 500mg Take 1 capsule by mouth in the morning and 1 capsule at noon and 1 capsule in the evening. [facility] acetaminoph en-codeine 300-30 mg tablet 2022-07 00:00: 00 Yes TAKE 1 TABLET BY MOUTH EVERY 6-8 HOURS NEEDED FOR PAIN [facility] amoxicillin 500 mg capsule 2022-07 00:00: 00 Yes 500mg Take 1 capsule by mouth in the morning and 1 capsule at noon and 1 capsule in the evening. [facility] acetaminoph en-codeine 300-30 mg tablet 2022-07 00:00: 00 Yes TAKE 1 TABLET BY MOUTH EVERY 6-8 HOURS NEEDED FOR PAIN [facility] amoxicillin 500 mg capsule 2022-07 00:00: 00 Yes 500mg Take 1 capsule by mouth in the morning and 1 capsule at noon and 1 capsule in the evening. [facility] ondansetron (ZOFRAN, HYDROCHLORI DE,) 4 mg tablet 02-06 00:00: 00 Yes 4mg Take 1 Tab by mouth every 8 (eight) hours as needed for Nausea and Vomiting (N/V). [facility] dicyclomine (BENTYL) 10 mg capsule 02-06 00:00: 00 Yes 10mg Take 1 Cap by mouth every 6 (six) hours as needed for Abdominal pain. [facility] ondansetron (ZOFRAN, HYDROCHLORI DE,) 4 mg tablet 02-06 00:00: 00 Yes 4mg Take 1 Tab by mouth every 8 (eight) hours as needed for Nausea and Vomiting (N/V). [facility] dicyclomine (BENTYL) 10 mg capsule 02-06 00:00: 00 Yes 10mg Take 1 Cap by mouth every 6 (six) hours as needed for Abdominal pain. [facility] ondansetron (ZOFRAN, HYDROCHLORI DE,) 4 mg tablet 02-06 00:00: 00 Yes 4mg Take 1 Tab by mouth every 8 (eight) hours as needed for Nausea and Vomiting (N/V). [facility] dicyclomine (BENTYL) 10 mg capsule 02-06 00:00: 00 Yes 10mg Take 1 Cap by mouth every 6 (six) hours as needed for Abdominal pain. [facility] ondansetron (ZOFRAN, HYDROCHLORI DE,) 4 mg tablet 02-06 00:00: 00 Yes 4mg Take 1 Tab by mouth every 8 (eight) hours as needed for Nausea and Vomiting (N/V). [facility] dicyclomine (BENTYL) 10 mg capsule 02-06 00:00: 00 Yes 10mg Take 1 Cap by mouth every 6 (six) hours as needed for Abdominal pain. [facility] ondansetron (ZOFRAN, HYDROCHLORI DE,) 4 mg tablet 02-06 00:00: 00 Yes 4mg Take 1 Tab by mouth every 8 (eight) hours as needed for Nausea and Vomiting (N/V). [facility] dicyclomine (BENTYL) 10 mg capsule 02-06 00:00: 00 Yes 10mg Take 1 Cap by mouth every 6 (six) hours as needed for Abdominal pain. [facility] ondansetron (ZOFRAN, HYDROCHLORI DE,) 4 mg tablet 02-06 00:00: 00 Yes 4mg Take 1 Tab by mouth every 8 (eight) hours as needed for Nausea and Vomiting (N/V). [facility] dicyclomine (BENTYL) 10 mg capsule 02-06 00:00: 00 Yes 10mg Take 1 Cap by mouth every 6 (six) hours as needed for Abdominal pain. [facility] ondansetron (ZOFRAN, HYDROCHLORI DE,) 4 mg tablet 02-06 00:00: 00 Yes 4mg Take 1 Tab by mouth every 8 (eight) hours as needed for Nausea and Vomiting (N/V). [facility] dicyclomine (BENTYL) 10 mg capsule 02-06 00:00: 00 Yes 10mg Take 1 Cap by mouth every 6 (six) hours as needed for Abdominal pain. [facility] ondansetron (ZOFRAN, HYDROCHLORI DE,) 4 mg tablet 02-06 00:00: 00 Yes 4mg Take 1 Tab by mouth every 8 (eight) hours as needed for Nausea and Vomiting (N/V). [facility] dicyclomine (BENTYL) 10 mg capsule 02-06 00:00: 00 Yes 10mg Take 1 Cap by mouth every 6 (six) hours as needed for Abdominal pain. [facility] ondansetron (ZOFRAN, HYDROCHLORI DE,) 4 mg tablet 02-06 00:00: 00 Yes 4mg Take 1 Tab by mouth every 8 (eight) hours as needed for Nausea and Vomiting (N/V). [facility] dicyclomine (BENTYL) 10 mg capsule 02-06 00:00: 00 Yes 10mg Take 1 Cap by mouth every 6 (six) hours as needed for Abdominal pain. [facility] ondansetron (ZOFRAN, HYDROCHLORI DE,) 4 mg tablet 02-06 00:00: 00 Yes 4mg Take 1 Tab by mouth every 8 (eight) hours as needed for Nausea and Vomiting (N/V). [facility] dicyclomine (BENTYL) 10 mg capsule 02-06 00:00: 00 Yes 10mg Take 1 Cap by mouth every 6 (six) hours as needed for Abdominal pain. [facility] ondansetron (ZOFRAN, HYDROCHLORI DE,) 4 mg tablet 02-06 00:00: 00 Yes 4mg Take 1 Tab by mouth every 8 (eight) hours as needed for Nausea and Vomiting (N/V). [facility] dicyclomine (BENTYL) 10 mg capsule 02-06 00:00: 00 Yes 10mg Take 1 Cap by mouth every 6 (six) hours as needed for Abdominal pain. [facility] ondansetron (ZOFRAN, HYDROCHLORI DE,) 4 mg tablet 02-06 00:00: 00 Yes 4mg Take 1 Tab by mouth every 8 (eight) hours as needed for Nausea and Vomiting (N/V). [facility] dicyclomine (BENTYL) 10 mg capsule 02-06 00:00: 00 Yes 10mg Take 1 Cap by mouth every 6 (six) hours as needed for Abdominal pain. [facility] ondansetron (ZOFRAN, HYDROCHLORI DE,) 4 mg tablet 02-06 00:00: 00 Yes 4mg Take 1 Tab by mouth every 8 (eight) hours as needed for Nausea and Vomiting (N/V). [facility] dicyclomine (BENTYL) 10 mg capsule 02-06 00:00: 00 Yes 10mg Take 1 Cap by mouth every 6 (six) hours as needed for Abdominal pain. [facility] ondansetron (ZOFRAN, HYDROCHLORI DE,) 4 mg tablet 02-06 00:00: 00 Yes 4mg Take 1 Tab by mouth every 8 (eight) hours as needed for Nausea and Vomiting (N/V). [facility] ondansetron (ZOFRAN, HYDROCHLORI DE,) 4 mg tablet 02-06 00:00: 00 Yes 4mg Take 1 Tab by mouth every 8 (eight) hours as needed for Nausea and Vomiting (N/V). [facility] dicyclomine (BENTYL) 10 mg capsule 02-06 00:00: 00 Yes 10mg Take 1 Cap by mouth every 6 (six) hours as needed for Abdominal pain. [facility] ondansetron (ZOFRAN, HYDROCHLORI DE,) 4 mg tablet 02-06 00:00: 00 Yes 4mg Take 1 Tab by mouth every 8 (eight) hours as needed for Nausea and Vomiting (N/V). [facility] dicyclomine (BENTYL) 10 mg capsule 02-06 00:00: 00 Yes 10mg Take 1 Cap by mouth every 6 (six) hours as needed for Abdominal pain. [facility] dicyclomine (BENTYL) 10 mg capsule 02-06 00:00: 00 Yes 10mg Take 1 Cap by mouth every 6 (six) hours as needed for Abdominal pain. [facility] ondansetron (ZOFRAN, HYDROCHLORI DE,) 4 mg tablet 02-06 00:00: 00 Yes 4mg Take 1 Tab by mouth every 8 (eight) hours as needed for Nausea and Vomiting (N/V). [facility] ondansetron (ZOFRAN, HYDROCHLORI DE,) 4 mg tablet 02-06 00:00: 00 Yes 4mg Take 1 Tab by mouth every 8 (eight) hours as needed for Nausea and Vomiting (N/V). [facility] dicyclomine (BENTYL) 10 mg capsule 02-06 00:00: 00 Yes 10mg Take 1 Cap by mouth every 6 (six) hours as needed for Abdominal pain. [facility] dicyclomine (BENTYL) 10 mg capsule 02-06 00:00: 00 Yes 10mg Take 1 Cap by mouth every 6 (six) hours as needed for Abdominal pain. [facility] ondansetron (ZOFRAN, HYDROCHLORI DE,) 4 mg tablet 02-06 00:00: 00 Yes 4mg Take 1 Tab by mouth every 8 (eight) hours as needed for Nausea and Vomiting (N/V). [facility] dicyclomine (BENTYL) 10 mg capsule 02-06 00:00: 00 Yes 10mg Take 1 Cap by mouth every 6 (six) hours as needed for Abdominal pain. [facility] ondansetron (ZOFRAN, HYDROCHLORI DE,) 4 mg tablet 02-06 00:00: 00 Yes 4mg Take 1 Tab by mouth every 8 (eight) hours as needed for Nausea and Vomiting (N/V). [facility] dicyclomine (BENTYL) 10 mg capsule 02-06 00:00: 00 Yes 10mg Take 1 Cap by mouth every 6 (six) hours as needed for Abdominal pain. [facility] Immunizations Ordered Immunization Name Filled Immunization Name Date Status Comments Source SARS-COV-2 COVID-19 PFIZER MARSHA-SUCROSE VACCINE (CAROL[facility] TOP) 2022-03-18 00:00:00 Completed [facility] SARS-COV-2 COVID-19 PFIZER MARSHA-SUCROSE VACCINE (CAROLINA TOP) 2022-03-18 00:00:00 Completed [facility] SARS-COV-2 COVID-19 PFIZER MARSHA-SUCROSE VACCINE (CAROLINA TOP) 2022-03-18 00:00:00 Completed [facility] Influenza Virus Vaccine Quad .5 mL IM 6+ MO 2022-02-25 00:00:00 Completed [facility] SARS-COV-2 COVID-19 PFIZER MARSHA-SUCROSE VACCINE (CAROLINA TOP) 2022-02-25 00:00:00 Completed [facility] Influenza Virus Vaccine Quad .5 mL IM 6+ MO 2022-02-25 00:00:00 Completed [facility] SARS-COV-2 COVID-19 PFIZER AMRSHA-SUCROSE VACCINE (CAROLINA TOP) 2022-02-25 00:00:00 Completed [facility] Influenza Virus Vaccine Quad .5 mL IM 6+ MO 2022-02-25 00:00:00 Completed [facility] SARS-COV-2 COVID-19 PFIZER MARSHA-SUCROSE VACCINE (CAROLINA TOP) 2022-02-25 00:00:00 Completed [facility] HPV9 2021-02-25 00:00:00 Completed [facility] Meningococcal B, OMV 2021-02-25 00:00:00 Completed [facility] TDAP 2021-02-25 00:00:00 Completed [facility] HPV9 2021-02-25 00:00:00 Completed [facility] Meningococcal B, OMV 2021-02-25 00:00:00 Completed [facility] TDAP 2021-02-25 00:00:00 Completed [facility] HPV9 2021-02-25 00:00:00 Completed [facility] Meningococcal B, OMV 2021-02-25 00:00:00 Completed [facility] TDAP 2021-02-25 00:00:00 Completed [facility] Meningococcal Polysaccharide (groups A, C, Y and W-135) conjugate vaccine (MCV4P) 2021-02-17 00:00:00 Completed [facility] Meningococcal Polysaccharide (groups A, C, Y and W-135) conjugate vaccine (MCV4P) 2021-02-17 00:00:00 Completed [facility] Meningococcal Polysaccharide (groups A, C, Y and W-135) conjugate vaccine (MCV4P) 2021-02-17 00:00:00 Completed [facility] HPV9 2020-11-22 00:00:00 Completed [facility] Meningococcal Polysaccharide (groups A, C, Y and W-135) conjugate vaccine (MCV4P) 2020-11-22 00:00:00 Completed [facility] Meningococcal B, OMV 2020-11-22 00:00:00 Completed [facility] HPV9 2020-11-22 00:00:00 Completed [facility] Meningococcal Polysaccharide (groups A, C, Y and W-135) conjugate vaccine (MCV4P) 2020-11-22 00:00:00 Completed [facility] Meningococcal B, OMV 2020-11-22 00:00:00 Completed [facility] HPV9 2020-11-22 00:00:00 Completed [facility] Meningococcal Polysaccharide (groups A, C, Y and W-135) conjugate vaccine (MCV4P) 2020-11-22 00:00:00 Completed [facility] Meningococcal B, OMV 2020-11-22 00:00:00 Completed [facility] HEPATITIS A 2008-02-20 00:00:00 Completed [facility] MMR 2008-02-20 00:00:00 Completed [facility] IPV 2008-02-20 00:00:00 Completed [facility] Varicella (varivax)(chicken pox) 2008-02-20 00:00:00 Completed [facility] DTaP, Unspecified Formulation 2008-02-20 00:00:00 Completed [facility] DTAP 2008-02-20 00:00:00 Completed [facility] HEPATITIS A 2008-02-20 00:00:00 Completed [facility] MMR 2008-02-20 00:00:00 Completed [facility] IPV 2008-02-20 00:00:00 Completed [facility] Varicella (varivax)(chicken pox) 2008-02-20 00:00:00 Completed [facility] DTaP, Unspecified Formulation 2008-02-20 00:00:00 Completed [facility] DTAP 2008-02-20 00:00:00 Completed [facility] HEPATITIS A 2008-02-20 00:00:00 Completed [facility] MMR 2008-02-20 00:00:00 Completed [facility] IPV 2008-02-20 00:00:00 Completed [facility] Varicella (varivax)(chicken pox) 2008-02-20 00:00:00 Completed [facility] DTaP, Unspecified Formulation 2008-02-20 00:00:00 Completed [facility] DTAP 2008-02-20 00:00:00 Completed [facility] HEPATITIS A 2006-08-15 00:00:00 Completed [facility] Pneumococcal 7 Conjugate, PCV7 (Prevnar7) 2006-08-15 00:00:00 Completed [facility] HEPATITIS A 2006-08-15 00:00:00 Completed [facility] Pneumococcal 7 Conjugate, PCV7 (Prevnar7) 2006-08-15 00:00:00 Completed [facility] HEPATITIS A 2006-08-15 00:00:00 Completed [facility] Pneumococcal 7 Conjugate, PCV7 (Prevnar7) 2006-08-15 00:00:00 Completed [facility] Hib-HbOC 2004-11-25 00:00:00 Completed [facility] IPV 2004-11-25 00:00:00 Completed [facility] Pneumococcal 7 Conjugate, PCV7 (Prevnar7) 2004-11-25 00:00:00 Completed [facility] Haemophilus influenzae type b vaccine, conjugate unspecified formulation 2004-11-25 00:00:00 Completed [facility] Hib-HbOC 2004-11-25 00:00:00 Completed [facility] IPV 2004-11-25 00:00:00 Completed [facility] Pneumococcal 7 Conjugate, PCV7 (Prevnar7) 2004-11-25 00:00:00 Completed [facility] Haemophilus influenzae type b vaccine, conjugate unspecified formulation 2004-11-25 00:00:00 Completed [facility] Hib-HbOC 2004-11-25 00:00:00 Completed [facility] IPV 2004-11-25 00:00:00 Completed [facility] Pneumococcal 7 Conjugate, PCV7 (Prevnar7) 2004-11-25 00:00:00 Completed [facility] Haemophilus influenzae type b vaccine, conjugate unspecified formulation 2004-11-25 00:00:00 Completed [facility] IPV 2004-10-11 00:00:00 Completed [facility] MMR 2004-10-11 00:00:00 Completed [facility] Varicella (varivax)(chicken pox) 2004-10-11 00:00:00 Completed [facility] DTaP, Unspecified Formulation 2004-10-11 00:00:00 Completed [facility] DTAP 2004-10-11 00:00:00 Completed [facility] IPV 2004-10-11 00:00:00 Completed [facility] MMR 2004-10-11 00:00:00 Completed [facility] Varicella (varivax)(chicken pox) 2004-10-11 00:00:00 Completed [facility] DTaP, Unspecified Formulation 2004-10-11 00:00:00 Completed [facility] DTAP 2004-10-11 00:00:00 Completed [facility] IPV 2004-10-11 00:00:00 Completed [facility] MMR 2004-10-11 00:00:00 Completed [facility] Varicella (varivax)(chicken pox) 2004-10-11 00:00:00 Completed [facility] DTaP, Unspecified Formulation 2004-10-11 00:00:00 Completed [facility] DTAP 2004-10-11 00:00:00 Completed [facility] Hep B, Adol or Pedi Dosage 2003 00:00:00 Completed [facility] Hib-HbOC 2003 00:00:00 Completed [facility] Pneumococcal 7 Conjugate, PCV7 (Prevnar7) 2003 00:00:00 Completed [facility] Haemophilus influenzae type b vaccine, conjugate unspecified formulation 2003 00:00:00 Completed [facility] DTaP, Unspecified Formulation 2003 00:00:00 Completed [facility] DTAP 2003 00:00:00 Completed [facility] Hep B, Adol or Pedi Dosage 2003 00:00:00 Completed [facility] Hib-HbOC 2003 00:00:00 Completed [facility] Pneumococcal 7 Conjugate, PCV7 (Prevnar7) 2003 00:00:00 Completed [facility] Haemophilus influenzae type b vaccine, conjugate unspecified formulation 2003 00:00:00 Completed [facility] DTaP, Unspecified Formulation 2003 00:00:00 Completed [facility] DTAP 2003 00:00:00 Completed [facility] Hep B, Adol or Pedi Dosage 2003 00:00:00 Completed [facility] Hib-HbOC 2003 00:00:00 Completed [facility] Pneumococcal 7 Conjugate, PCV7 (Prevnar7) 2003 00:00:00 Completed [facility] Haemophilus influenzae type b vaccine, conjugate unspecified formulation 2003 00:00:00 Completed [facility] DTaP, Unspecified Formulation 2003 00:00:00 Completed [facility] DTAP 2003 00:00:00 Completed [facility] Hib-HbOC 2003 00:00:00 Completed [facility] IPV 2003 00:00:00 Completed [facility] Pneumococcal 7 Conjugate, PCV7 (Prevnar7) 2003 00:00:00 Completed [facility] Haemophilus influenzae type b vaccine, conjugate unspecified formulation 2003 00:00:00 Completed [facility] DTaP, Unspecified Formulation 2003 00:00:00 Completed [facility] DTAP 2003 00:00:00 Completed [facility] Hib-HbOC 2003 00:00:00 Completed [facility] IPV 2003 00:00:00 Completed [facility] Pneumococcal 7 Conjugate, PCV7 (Prevnar7) 2003 00:00:00 Completed [facility] Haemophilus influenzae type b vaccine, conjugate unspecified formulation 2003 00:00:00 Completed [facility] DTaP, Unspecified Formulation 2003 00:00:00 Completed [facility] DTAP 2003 00:00:00 Completed [facility] Hib-HbOC 2003 00:00:00 Completed [facility] IPV 2003 00:00:00 Completed [facility] Pneumococcal 7 Conjugate, PCV7 (Prevnar7) 2003 00:00:00 Completed [facility] Haemophilus influenzae type b vaccine, conjugate unspecified formulation 2003 00:00:00 Completed [facility] DTaP, Unspecified Formulation 2003 00:00:00 Completed [facility] DTAP 2003 00:00:00 Completed [facility] Hep B, Adol or Pedi Dosage 2003 00:00:00 Completed [facility] Hib-HbOC 2003 00:00:00 Completed [facility] DTaP, Unspecified Formulation 2003 00:00:00 Completed [facility] DTaP/HIB 2003 00:00:00 Completed [facility] Hep B, Adol or Pedi Dosage 2003 00:00:00 Completed [facility] Hib-HbOC 2003 00:00:00 Completed [facility] DTaP, Unspecified Formulation 2003 00:00:00 Completed [facility] DTaP/HIB 2003 00:00:00 Completed [facility] Hep B, Adol or Pedi Dosage 2003 00:00:00 Completed [facility] Hib-HbOC 2003 00:00:00 Completed [facility] DTaP, Unspecified Formulation 2003 00:00:00 Completed [facility] DTaP/HIB 2003 00:00:00 Completed [facility] Hep B, Adol or Pedi Dosage 2003 00:00:00 Completed [facility] Hep B, Adol or Pedi Dosage 2003 00:00:00 Completed [facility] Hep B, Adol or Pedi Dosage 2003 00:00:00 Completed [facility] Hep B, Adol or Pedi Dosage Unknown Completed [facility] HEPATITIS A Unknown Completed [facility] HEPATITIS A Unknown Completed [facility] Hib-HbOC Unknown Completed [facility] Hib-HbOC Unknown Completed [facility] Hib-HbOC Unknown Completed [facility] Hib-HbOC Unknown Completed [facility] HPV9 Unknown Completed [facility] HPV9 Unknown Completed [facility] IPV Unknown Completed [facility] IPV Unknown Completed [facility] IPV Unknown Completed [facility] Meningococcal Polysaccharide (groups A, C, Y and W-135) conjugate vaccine (MCV4P) Unknown Completed [facility] Meningococcal Polysaccharide (groups A, C, Y and W-135) conjugate vaccine (MCV4P) Unknown Completed [facility] Meningococcal B, OMV Unknown Completed [facility] Meningococcal B, OMV Unknown Completed [facility] MMR Unknown Completed [facility] MMR Unknown Completed [facility] Pneumococcal 7 Conjugate, PCV7 (Prevnar7) Unknown Completed [facility] Pneumococcal 7 Conjugate, PCV7 (Prevnar7) Unknown Completed [facility] Pneumococcal 7 Conjugate, PCV7 (Prevnar7) Unknown Completed [facility] Pneumococcal 7 Conjugate, PCV7 (Prevnar7) Unknown Completed [facility] IPV Unknown Completed [facility] TDAP Unknown Completed [facility] Varicella (varivax)(chicken pox) Unknown Completed [facility] Varicella (varivax)(chicken pox) Unknown Completed [facility] Influenza Virus Vaccine Quad IM, Preserv and ABX Free 6 MO-64 YRS (FLUCELVAX) Unknown Completed [facility] Haemophilus influenzae type b vaccine, conjugate unspecified formulation Unknown Completed [facility] Haemophilus influenzae type b vaccine, conjugate unspecified formulation Unknown Completed [facility] Haemophilus influenzae type b vaccine, conjugate unspecified formulation Unknown Completed [facility] SARS-COV-2 COVID-19 PFIZER MARSHA-SUCROSE VACCINE (CAROLINA TOP) Unknown Completed [facility] SARS-COV-2 COVID-19 PFIZER MARSHA-SUCROSE VACCINE (CAROLINA TOP) Unknown Completed [facility] DTaP, Unspecified Formulation Unknown Completed [facility] DTaP, Unspecified Formulation Unknown Completed [facility] DTaP, Unspecified Formulation Unknown Completed [facility] DTaP, Unspecified Formulation Unknown Completed [facility] DTaP, Unspecified Formulation Unknown Completed [facility] DTAP Unknown Completed [facility] DTAP Unknown Completed [facility] DTAP Unknown Completed [facility] DTAP Unknown Completed [facility] DTaP/HIB Unknown Completed [facility] Influenza Virus Vaccine Quad .5 mL IM 6+ MO (FLUZONE/FLULAVAL/FL UARIX) Unknown Completed [facility] Hep B, Adol or Pedi Dosage Unknown Completed [facility] Hep B, Adol or Pedi Dosage Unknown Completed [facility] Hep B, Adol or Pedi Dosage Unknown Completed [facility] HEPATITIS A Unknown Completed [facility] HEPATITIS A Unknown Completed [facility] Hib-HbOC Unknown Completed [facility] Hib-HbOC Unknown Completed [facility] Hib-HbOC Unknown Completed [facility] Hib-HbOC Unknown Completed [facility] HPV9 Unknown Completed [facility] HPV9 Unknown Completed [facility] IPV Unknown Completed [facility] IPV Unknown Completed [facility] IPV Unknown Completed [facility] Meningococcal Polysaccharide (groups A, C, Y and W-135) conjugate vaccine (MCV4P) Unknown Completed [facility] Meningococcal Polysaccharide (groups A, C, Y and W-135) conjugate vaccine (MCV4P) Unknown Completed [facility] Meningococcal B, OMV Unknown Completed [facility] Meningococcal B, OMV Unknown Completed [facility] MMR Unknown Completed [facility] MMR Unknown Completed [facility] Pneumococcal 7 Conjugate, PCV7 (Prevnar7) Unknown Completed [facility] Pneumococcal 7 Conjugate, PCV7 (Prevnar7) Unknown Completed [facility] Pneumococcal 7 Conjugate, PCV7 (Prevnar7) Unknown Completed [facility] Pneumococcal 7 Conjugate, PCV7 (Prevnar7) Unknown Completed [facility] IPV Unknown Completed [facility] TDAP Unknown Completed [facility] Varicella (varivax)(chicken pox) Unknown Completed [facility] Varicella (varivax)(chicken pox) Unknown Completed [facility] Influenza Virus Vaccine Quad IM, Preserv and ABX Free 6 MO-64 YRS (FLUCELVAX) Unknown Completed [facility] Haemophilus influenzae type b vaccine, conjugate unspecified formulation Unknown Completed [facility] Haemophilus influenzae type b vaccine, conjugate unspecified formulation Unknown Completed [facility] Haemophilus influenzae type b vaccine, conjugate unspecified formulation Unknown Completed [facility] SARS-COV-2 COVID-19 PFIZER MARSHA-SUCROSE VACCINE (CAROLINA TOP) Unknown Completed [facility] SARS-COV-2 COVID-19 PFIZER MARSHA-SUCROSE VACCINE (CAROLINA TOP) Unknown Completed [facility] DTaP, Unspecified Formulation Unknown Completed [facility] DTaP, Unspecified Formulation Unknown Completed [facility] DTaP, Unspecified Formulation Unknown Completed [facility] DTaP, Unspecified Formulation Unknown Completed [facility] DTaP, Unspecified Formulation Unknown Completed [facility] DTAP Unknown Completed [facility] DTAP Unknown Completed [facility] DTAP Unknown Completed [facility] DTAP Unknown Completed [facility] DTaP/HIB Unknown Completed [facility] Influenza Virus Vaccine Quad .5 mL IM 6+ MO (FLUZONE/FLULAVAL/FL UARIX) Unknown Completed [facility] Hep B, Adol or Pedi Dosage Unknown Completed [facility] Hep B, Adol or Pedi Dosage Unknown Completed [facility] Hep B, Adol or Pedi Dosage Unknown Completed [facility] HEPATITIS A Unknown Completed [facility] HEPATITIS A Unknown Completed [facility] Hib-HbOC Unknown Completed [facility] Hib-HbOC Unknown Completed [facility] Hib-HbOC Unknown Completed [facility] Hib-HbOC Unknown Completed [facility] HPV9 Unknown Completed [facility] HPV9 Unknown Completed [facility] IPV Unknown Completed [facility] IPV Unknown Completed [facility] IPV Unknown Completed [facility] Meningococcal Polysaccharide (groups A, C, Y and W-135) conjugate vaccine (MCV4P) Unknown Completed [facility] Meningococcal Polysaccharide (groups A, C, Y and W-135) conjugate vaccine (MCV4P) Unknown Completed [facility] Meningococcal B, OMV Unknown Completed [facility] Meningococcal B, OMV Unknown Completed [facility] MMR Unknown Completed [facility] MMR Unknown Completed [facility] Pneumococcal 7 Conjugate, PCV7 (Prevnar7) Unknown Completed [facility] Pneumococcal 7 Conjugate, PCV7 (Prevnar7) Unknown Completed [facility] Pneumococcal 7 Conjugate, PCV7 (Prevnar7) Unknown Completed [facility] Pneumococcal 7 Conjugate, PCV7 (Prevnar7) Unknown Completed [facility] IPV Unknown Completed [facility] TDAP Unknown Completed [facility] Varicella (varivax)(chicken pox) Unknown Completed [facility] Varicella (varivax)(chicken pox) Unknown Completed [facility] Influenza Virus Vaccine Quad IM, Preserv and ABX Free 6 MO-64 YRS (FLUCELVAX) Unknown Completed [facility] Haemophilus influenzae type b vaccine, conjugate unspecified formulation Unknown Completed [facility] Haemophilus influenzae type b vaccine, conjugate unspecified formulation Unknown Completed [facility] Haemophilus influenzae type b vaccine, conjugate unspecified formulation Unknown Completed [facility] SARS-COV-2 COVID-19 PFIZER MARSHA-SUCROSE VACCINE (CAROLINA TOP) Unknown Completed [facility] SARS-COV-2 COVID-19 PFIZER MARSHA-SUCROSE VACCINE (CAROLINA TOP) Unknown Completed [facility] DTaP, Unspecified Formulation Unknown Completed [facility] DTaP, Unspecified Formulation Unknown Completed [facility] DTaP, Unspecified Formulation Unknown Completed [facility] DTaP, Unspecified Formulation Unknown Completed [facility] DTaP, Unspecified Formulation Unknown Completed [facility] DTAP Unknown Completed [facility] DTAP Unknown Completed [facility] DTAP Unknown Completed [facility] DTAP Unknown Completed [facility] DTaP/HIB Unknown Completed [facility] Influenza Virus Vaccine Quad .5 mL IM 6+ MO (FLUZONE/FLULAVAL/FL UARIX) Unknown Completed [facility] Hep B, Adol or Pedi Dosage Unknown Completed [facility] Hep B, Adol or Pedi Dosage Unknown Completed [facility] Hep B, Adol or Pedi Dosage Unknown Completed [facility] HEPATITIS A Unknown Completed [facility] HEPATITIS A Unknown Completed [facility] Hib-HbOC Unknown Completed [facility] Hib-HbOC Unknown Completed [facility] Hib-HbOC Unknown Completed [facility] Hib-HbOC Unknown Completed [facility] HPV9 Unknown Completed [facility] HPV9 Unknown Completed [facility] IPV Unknown Completed [facility] IPV Unknown Completed [facility] IPV Unknown Completed [facility] Meningococcal Polysaccharide (groups A, C, Y and W-135) conjugate vaccine (MCV4P) Unknown Completed [facility] Meningococcal Polysaccharide (groups A, C, Y and W-135) conjugate vaccine (MCV4P) Unknown Completed [facility] Meningococcal B, OMV Unknown Completed [facility] Meningococcal B, OMV Unknown Completed [facility] MMR Unknown Completed [facility] MMR Unknown Completed [facility] Pneumococcal 7 Conjugate, PCV7 (Prevnar7) Unknown Completed [facility] Pneumococcal 7 Conjugate, PCV7 (Prevnar7) Unknown Completed [facility] Pneumococcal 7 Conjugate, PCV7 (Prevnar7) Unknown Completed [facility] Pneumococcal 7 Conjugate, PCV7 (Prevnar7) Unknown Completed [facility] IPV Unknown Completed [facility] TDAP Unknown Completed [facility] Varicella (varivax)(chicken pox) Unknown Completed [facility] Varicella (varivax)(chicken pox) Unknown Completed [facility] Influenza Virus Vaccine Quad IM, Preserv and ABX Free 6 MO-64 YRS (FLUCELVAX) Unknown Completed [facility] Haemophilus influenzae type b vaccine, conjugate unspecified formulation Unknown Completed [facility] Haemophilus influenzae type b vaccine, conjugate unspecified formulation Unknown Completed [facility] Haemophilus influenzae type b vaccine, conjugate unspecified formulation Unknown Completed [facility] SARS-COV-2 COVID-19 PFIZER MARSHA-SUCROSE VACCINE (CAR[place]INA TOP) Unknown Completed [facility] SARS-COV-2 COVID-19 PFIZER MARSHA-SUCROSE VACCINE (CAROLINA TOP) Unknown Completed [facility] DTaP, Unspecified Formulation Unknown Completed [facility] DTaP, Unspecified Formulation Unknown Completed [facility] DTaP, Unspecified Formulation Unknown Completed [facility] DTaP, Unspecified Formulation Unknown Completed [facility] DTaP, Unspecified Formulation Unknown Completed [facility] DTAP Unknown Completed [facility] DTAP Unknown Completed [facility] DTAP Unknown Completed [facility] DTAP Unknown Completed [facility] DTaP/HIB Unknown Completed [facility] Influenza Virus Vaccine Quad .5 mL IM 6+ MO (FLUZONE/FLULAVAL/FL UARIX) Unknown Completed [facility] Hep B, Adol or Pedi Dosage Unknown Completed [facility] Hep B, Adol or Pedi Dosage Unknown Completed [facility] Hep B, Adol or Pedi Dosage Unknown Completed [facility] HEPATITIS A Unknown Completed [facility] HEPATITIS A Unknown Completed [facility] Hib-HbOC Unknown Completed [facility] Hib-HbOC Unknown Completed [facility] Hib-HbOC Unknown Completed [facility] Hib-HbOC Unknown Completed [facility] HPV9 Unknown Completed [facility] HPV9 Unknown Completed [facility] IPV Unknown Completed [facility] IPV Unknown Completed [facility] IPV Unknown Completed [facility] Meningococcal Polysaccharide (groups A, C, Y and W-135) conjugate vaccine (MCV4P) Unknown Completed [facility] Meningococcal Polysaccharide (groups A, C, Y and W-135) conjugate vaccine (MCV4P) Unknown Completed [facility] Meningococcal B, OMV Unknown Completed [facility] Meningococcal B, OMV Unknown Completed [facility] MMR Unknown Completed [facility] MMR Unknown Completed [facility] Pneumococcal 7 Conjugate, PCV7 (Prevnar7) Unknown Completed [facility] Pneumococcal 7 Conjugate, PCV7 (Prevnar7) Unknown Completed [facility] Pneumococcal 7 Conjugate, PCV7 (Prevnar7) Unknown Completed [facility] Pneumococcal 7 Conjugate, PCV7 (Prevnar7) Unknown Completed [facility] IPV Unknown Completed [facility] TDAP Unknown Completed [facility] Varicella (varivax)(chicken pox) Unknown Completed [facility] Varicella (varivax)(chicken pox) Unknown Completed [facility] Influenza Virus Vaccine Quad IM, Preserv and ABX Free 6 MO-64 YRS (FLUCELVAX) Unknown Completed [facility] Haemophilus influenzae type b vaccine, conjugate unspecified formulation Unknown Completed [facility] Haemophilus influenzae type b vaccine, conjugate unspecified formulation Unknown Completed [facility] Haemophilus influenzae type b vaccine, conjugate unspecified formulation Unknown Completed [facility] SARS-COV-2 COVID-19 PFIZER MARSHA-SUCROSE VACCINE (CAR[place]INA TOP) Unknown Completed [facility] SARS-COV-2 COVID-19 PFIZER MASRHA-SUCROSE VACCINE (CAROLINA TOP) Unknown Completed [facility] DTaP, Unspecified Formulation Unknown Completed [facility] DTaP, Unspecified Formulation Unknown Completed [facility] DTaP, Unspecified Formulation Unknown Completed [facility] DTaP, Unspecified Formulation Unknown Completed [facility] DTaP, Unspecified Formulation Unknown Completed [facility] DTAP Unknown Completed [facility] DTAP Unknown Completed [facility] DTAP Unknown Completed [facility] DTAP Unknown Completed [facility] DTaP/HIB Unknown Completed [facility] Influenza Virus Vaccine Quad .5 mL IM 6+ MO (FLUZONE/FLULAVAL/FL UARIX) Unknown Completed [facility] Hep B, Adol or Pedi Dosage Unknown Completed [facility] Hep B, Adol or Pedi Dosage Unknown Completed [facility] Hep B, Adol or Pedi Dosage Unknown Completed [facility] HEPATITIS A Unknown Completed [facility] HEPATITIS A Unknown Completed [facility] Hib-HbOC Unknown Completed [facility] Hib-HbOC Unknown Completed [facility] Hib-HbOC Unknown Completed [facility] Hib-HbOC Unknown Completed [facility] HPV9 Unknown Completed [facility] HPV9 Unknown Completed [facility] IPV Unknown Completed [facility] IPV Unknown Completed [facility] IPV Unknown Completed [facility] Meningococcal Polysaccharide (groups A, C, Y and W-135) conjugate vaccine (MCV4P) Unknown Completed [facility] Meningococcal Polysaccharide (groups A, C, Y and W-135) conjugate vaccine (MCV4P) Unknown Completed [facility] Meningococcal B, OMV Unknown Completed [facility] Meningococcal B, OMV Unknown Completed [facility] MMR Unknown Completed [facility] MMR Unknown Completed [facility] Pneumococcal 7 Conjugate, PCV7 (Prevnar7) Unknown Completed [facility] Pneumococcal 7 Conjugate, PCV7 (Prevnar7) Unknown Completed [facility] Pneumococcal 7 Conjugate, PCV7 (Prevnar7) Unknown Completed [facility] Pneumococcal 7 Conjugate, PCV7 (Prevnar7) Unknown Completed [facility] IPV Unknown Completed [facility] TDAP Unknown Completed [facility] Varicella (varivax)(chicken pox) Unknown Completed [facility] Varicella (varivax)(chicken pox) Unknown Completed [facility] Influenza Virus Vaccine Quad IM, Preserv and ABX Free 6 MO-64 YRS (FLUCELVAX) Unknown Completed [facility] Haemophilus influenzae type b vaccine, conjugate unspecified formulation Unknown Completed [facility] Haemophilus influenzae type b vaccine, conjugate unspecified formulation Unknown Completed [facility] Haemophilus influenzae type b vaccine, conjugate unspecified formulation Unknown Completed [facility] SARS-COV-2 COVID-19 PFIZER MARSHA-SUCROSE VACCINE ([place] TOP) Unknown Completed [facility] SARS-COV-2 COVID-19 PFIZER MARSHA-SUCROSE VACCINE (CAR[place]INA TOP) Unknown Completed [facility] DTaP, Unspecified Formulation Unknown Completed [facility] DTaP, Unspecified Formulation Unknown Completed [facility] DTaP, Unspecified Formulation Unknown Completed [facility] DTaP, Unspecified Formulation Unknown Completed [facility] DTaP, Unspecified Formulation Unknown Completed [facility] DTAP Unknown Completed [facility] DTAP Unknown Completed [facility] DTAP Unknown Completed [facility] DTAP Unknown Completed [facility] DTaP/HIB Unknown Completed [facility] Influenza Virus Vaccine Quad .5 mL IM 6+ MO (FLUZONE/FLULAVAL/FL UARIX) Unknown Completed [facility] Hep B, Adol or Pedi Dosage Unknown Completed [facility] Hep B, Adol or Pedi Dosage Unknown Completed [facility] Hep B, Adol or Pedi Dosage Unknown Completed [facility] HEPATITIS A Unknown Completed [facility] HEPATITIS A Unknown Completed [facility] Hib-HbOC Unknown Completed [facility] Hib-HbOC Unknown Completed [facility] Hib-HbOC Unknown Completed [facility] Hib-HbOC Unknown Completed [facility] HPV9 Unknown Completed [facility] HPV9 Unknown Completed [facility] IPV Unknown Completed [facility] IPV Unknown Completed [facility] IPV Unknown Completed [facility] Meningococcal Polysaccharide (groups A, C, Y and W-135) conjugate vaccine (MCV4P) Unknown Completed [facility] Meningococcal Polysaccharide (groups A, C, Y and W-135) conjugate vaccine (MCV4P) Unknown Completed [facility] Meningococcal B, OMV Unknown Completed [facility] Meningococcal B, OMV Unknown Completed [facility] MMR Unknown Completed [facility] MMR Unknown Completed [facility] Pneumococcal 7 Conjugate, PCV7 (Prevnar7) Unknown Completed [facility] Pneumococcal 7 Conjugate, PCV7 (Prevnar7) Unknown Completed [facility] Pneumococcal 7 Conjugate, PCV7 (Prevnar7) Unknown Completed [facility] Pneumococcal 7 Conjugate, PCV7 (Prevnar7) Unknown Completed [facility] IPV Unknown Completed [facility] TDAP Unknown Completed [facility] Varicella (varivax)(chicken pox) Unknown Completed [facility] Varicella (varivax)(chicken pox) Unknown Completed [facility] Influenza Virus Vaccine Quad IM, Preserv and ABX Free 6 MO-64 YRS (FLUCELVAX) Unknown Completed [facility] Haemophilus influenzae type b vaccine, conjugate unspecified formulation Unknown Completed [facility] Haemophilus influenzae type b vaccine, conjugate unspecified formulation Unknown Completed [facility] Haemophilus influenzae type b vaccine, conjugate unspecified formulation Unknown Completed [facility] SARS-COV-2 COVID-19 PFIZER MARSHA-SUCROSE VACCINE ([place] TOP) Unknown Completed [facility] SARS-COV-2 COVID-19 PFIZER MARSHA-SUCROSE VACCINE (CAROLINA TOP) Unknown Completed [facility] DTaP, Unspecified Formulation Unknown Completed [facility] DTaP, Unspecified Formulation Unknown Completed [facility] DTaP, Unspecified Formulation Unknown Completed [facility] DTaP, Unspecified Formulation Unknown Completed [facility] DTaP, Unspecified Formulation Unknown Completed [facility] DTAP Unknown Completed [facility] DTAP Unknown Completed [facility] DTAP Unknown Completed [facility] DTAP Unknown Completed [facility] DTaP/HIB Unknown Completed [facility] Influenza Virus Vaccine Quad .5 mL IM 6+ MO (FLUZONE/FLULAVAL/FL UARIX) Unknown Completed [facility] Hep B, Adol or Pedi Dosage Unknown Completed [facility] Hep B, Adol or Pedi Dosage Unknown Completed [facility] Hep B, Adol or Pedi Dosage Unknown Completed [facility] HEPATITIS A Unknown Completed [facility] HEPATITIS A Unknown Completed [facility] Hib-HbOC Unknown Completed [facility] Hib-HbOC Unknown Completed [facility] Hib-HbOC Unknown Completed [facility] Hib-HbOC Unknown Completed [facility] HPV9 Unknown Completed [facility] HPV9 Unknown Completed [facility] IPV Unknown Completed [facility] IPV Unknown Completed [facility] IPV Unknown Completed [facility] Meningococcal Polysaccharide (groups A, C, Y and W-135) conjugate vaccine (MCV4P) Unknown Completed [facility] Meningococcal Polysaccharide (groups A, C, Y and W-135) conjugate vaccine (MCV4P) Unknown Completed [facility] Meningococcal B, OMV Unknown Completed [facility] Meningococcal B, OMV Unknown Completed [facility] MMR Unknown Completed [facility] MMR Unknown Completed [facility] Pneumococcal 7 Conjugate, PCV7 (Prevnar7) Unknown Completed [facility] Pneumococcal 7 Conjugate, PCV7 (Prevnar7) Unknown Completed [facility] Pneumococcal 7 Conjugate, PCV7 (Prevnar7) Unknown Completed [facility] Pneumococcal 7 Conjugate, PCV7 (Prevnar7) Unknown Completed [facility] IPV Unknown Completed [facility] TDAP Unknown Completed [facility] Varicella (varivax)(chicken pox) Unknown Completed [facility] Varicella (varivax)(chicken pox) Unknown Completed [facility] Influenza Virus Vaccine Quad IM, Preserv and ABX Free 6 MO-64 YRS (FLUCELVAX) Unknown Completed [facility] Haemophilus influenzae type b vaccine, conjugate unspecified formulation Unknown Completed [facility] Haemophilus influenzae type b vaccine, conjugate unspecified formulation Unknown Completed [facility] Haemophilus influenzae type b vaccine, conjugate unspecified formulation Unknown Completed [facility] SARS-COV-2 COVID-19 PFIZER MARSHA-SUCROSE VACCINE (CAROLINA TOP) Unknown Completed [facility] SARS-COV-2 COVID-19 PFIZER MARSHA-SUCROSE VACCINE (CAROLINA TOP) Unknown Completed [facility] DTaP, Unspecified Formulation Unknown Completed [facility] DTaP, Unspecified Formulation Unknown Completed [facility] DTaP, Unspecified Formulation Unknown Completed [facility] DTaP, Unspecified Formulation Unknown Completed [facility] DTaP, Unspecified Formulation Unknown Completed [facility] DTAP Unknown Completed [facility] DTAP Unknown Completed [facility] DTAP Unknown Completed [facility] DTAP Unknown Completed [facility] DTaP/HIB Unknown Completed [facility] Influenza Virus Vaccine Quad .5 mL IM 6+ MO (FLUZONE/FLULAVAL/FL UARIX) Unknown Completed [facility] Hep B, Adol or Pedi Dosage Unknown Completed [facility] Hep B, Adol or Pedi Dosage Unknown Completed [facility] Hep B, Adol or Pedi Dosage Unknown Completed [facility] HEPATITIS A Unknown Completed [facility] HEPATITIS A Unknown Completed [facility] Hib-HbOC Unknown Completed [facility] Hib-HbOC Unknown Completed [facility] Hib-HbOC Unknown Completed [facility] Hib-HbOC Unknown Completed [facility] HPV9 Unknown Completed [facility] HPV9 Unknown Completed [facility] IPV Unknown Completed [facility] IPV Unknown Completed [facility] IPV Unknown Completed [facility] Meningococcal Polysaccharide (groups A, C, Y and W-135) conjugate vaccine (MCV4P) Unknown Completed [facility] Meningococcal Polysaccharide (groups A, C, Y and W-135) conjugate vaccine (MCV4P) Unknown Completed [facility] Meningococcal B, OMV Unknown Completed [facility] Meningococcal B, OMV Unknown Completed [facility] MMR Unknown Completed [facility] MMR Unknown Completed [facility] Pneumococcal 7 Conjugate, PCV7 (Prevnar7) Unknown Completed [facility] Pneumococcal 7 Conjugate, PCV7 (Prevnar7) Unknown Completed [facility] Pneumococcal 7 Conjugate, PCV7 (Prevnar7) Unknown Completed [facility] Pneumococcal 7 Conjugate, PCV7 (Prevnar7) Unknown Completed [facility] IPV Unknown Completed [facility] TDAP Unknown Completed [facility] Varicella (varivax)(chicken pox) Unknown Completed [facility] Varicella (varivax)(chicken pox) Unknown Completed [facility] Influenza Virus Vaccine Quad IM, Preserv and ABX Free 6 MO-64 YRS (FLUCELVAX) Unknown Completed [facility] Haemophilus influenzae type b vaccine, conjugate unspecified formulation Unknown Completed [facility] Haemophilus influenzae type b vaccine, conjugate unspecified formulation Unknown Completed [facility] Haemophilus influenzae type b vaccine, conjugate unspecified formulation Unknown Completed [facility] SARS-COV-2 COVID-19 PFIZER MARSHA-SUCROSE VACCINE (CAR[place]INA TOP) Unknown Completed [facility] SARS-COV-2 COVID-19 PFIZER AMRSHA-SUCROSE VACCINE (CAR[place]INA TOP) Unknown Completed [facility] DTaP, Unspecified Formulation Unknown Completed [facility] DTaP, Unspecified Formulation Unknown Completed [facility] DTaP, Unspecified Formulation Unknown Completed [facility] DTaP, Unspecified Formulation Unknown Completed [facility] DTaP, Unspecified Formulation Unknown Completed [facility] DTAP Unknown Completed [facility] DTAP Unknown Completed [facility] DTAP Unknown Completed [facility] DTAP Unknown Completed [facility] DTaP/HIB Unknown Completed [facility] Influenza Virus Vaccine Quad .5 mL IM 6+ MO (FLUZONE/FLULAVAL/FL UARIX) Unknown Completed [facility] Hep B, Adol or Pedi Dosage Unknown Completed [facility] Hep B, Adol or Pedi Dosage Unknown Completed [facility] Hep B, Adol or Pedi Dosage Unknown Completed [facility] HEPATITIS A Unknown Completed [facility] HEPATITIS A Unknown Completed [facility] Hib-HbOC Unknown Completed [facility] Hib-HbOC Unknown Completed [facility] Hib-HbOC Unknown Completed [facility] Hib-HbOC Unknown Completed [facility] HPV9 Unknown Completed [facility] HPV9 Unknown Completed [facility] IPV Unknown Completed [facility] IPV Unknown Completed [facility] IPV Unknown Completed [facility] Meningococcal Polysaccharide (groups A, C, Y and W-135) conjugate vaccine (MCV4P) Unknown Completed [facility] Meningococcal Polysaccharide (groups A, C, Y and W-135) conjugate vaccine (MCV4P) Unknown Completed [facility] Meningococcal B, OMV Unknown Completed [facility] Meningococcal B, OMV Unknown Completed [facility] MMR Unknown Completed [facility] MMR Unknown Completed [facility] Pneumococcal 7 Conjugate, PCV7 (Prevnar7) Unknown Completed [facility] Pneumococcal 7 Conjugate, PCV7 (Prevnar7) Unknown Completed [facility] Pneumococcal 7 Conjugate, PCV7 (Prevnar7) Unknown Completed [facility] Pneumococcal 7 Conjugate, PCV7 (Prevnar7) Unknown Completed [facility] IPV Unknown Completed [facility] TDAP Unknown Completed [facility] Varicella (varivax)(chicken pox) Unknown Completed [facility] Varicella (varivax)(chicken pox) Unknown Completed [facility] Influenza Virus Vaccine Quad IM, Preserv and ABX Free 6 MO-64 YRS (FLUCELVAX) Unknown Completed [facility] Haemophilus influenzae type b vaccine, conjugate unspecified formulation Unknown Completed [facility] Haemophilus influenzae type b vaccine, conjugate unspecified formulation Unknown Completed [facility] Haemophilus influenzae type b vaccine, conjugate unspecified formulation Unknown Completed [facility] SARS-COV-2 COVID-19 PFIZER MARSHA-SUCROSE VACCINE ([place] TOP) Unknown Completed [facility] SARS-COV-2 COVID-19 PFIZER MARSHA-SUCROSE VACCINE (CAR[place]INA TOP) Unknown Completed [facility] DTaP, Unspecified Formulation Unknown Completed [facility] DTaP, Unspecified Formulation Unknown Completed [facility] DTaP, Unspecified Formulation Unknown Completed [facility] DTaP, Unspecified Formulation Unknown Completed [facility] DTaP, Unspecified Formulation Unknown Completed [facility] DTAP Unknown Completed [facility] DTAP Unknown Completed [facility] DTAP Unknown Completed [facility] DTAP Unknown Completed [facility] DTaP/HIB Unknown Completed [facility] Influenza Virus Vaccine Quad .5 mL IM 6+ MO (FLUZONE/FLULAVAL/FL UARIX) Unknown Completed [facility] Hep B, Adol or Pedi Dosage Unknown Completed [facility] Hep B, Adol or Pedi Dosage Unknown Completed [facility] Hep B, Adol or Pedi Dosage Unknown Completed [facility] HEPATITIS A Unknown Completed [facility] HEPATITIS A Unknown Completed [facility] Hib-HbOC Unknown Completed [facility] Hib-HbOC Unknown Completed [facility] Hib-HbOC Unknown Completed [facility] Hib-HbOC Unknown Completed [facility] HPV9 Unknown Completed [facility] HPV9 Unknown Completed [facility] IPV Unknown Completed [facility] IPV Unknown Completed [facility] IPV Unknown Completed [facility] Meningococcal Polysaccharide (groups A, C, Y and W-135) conjugate vaccine (MCV4P) Unknown Completed [facility] Meningococcal Polysaccharide (groups A, C, Y and W-135) conjugate vaccine (MCV4P) Unknown Completed [facility] Meningococcal B, OMV Unknown Completed [facility] Meningococcal B, OMV Unknown Completed [facility] MMR Unknown Completed [facility] MMR Unknown Completed [facility] Pneumococcal 7 Conjugate, PCV7 (Prevnar7) Unknown Completed [facility] Pneumococcal 7 Conjugate, PCV7 (Prevnar7) Unknown Completed [facility] Pneumococcal 7 Conjugate, PCV7 (Prevnar7) Unknown Completed [facility] Pneumococcal 7 Conjugate, PCV7 (Prevnar7) Unknown Completed [facility] IPV Unknown Completed [facility] TDAP Unknown Completed [facility] Varicella (varivax)(chicken pox) Unknown Completed [facility] Varicella (varivax)(chicken pox) Unknown Completed [facility] Influenza Virus Vaccine Quad IM, Preserv and ABX Free 6 MO-64 YRS (FLUCELVAX) Unknown Completed [facility] Haemophilus influenzae type b vaccine, conjugate unspecified formulation Unknown Completed [facility] Haemophilus influenzae type b vaccine, conjugate unspecified formulation Unknown Completed [facility] Haemophilus influenzae type b vaccine, conjugate unspecified formulation Unknown Completed [facility] SARS-COV-2 COVID-19 PFIZER MARSHA-SUCROSE VACCINE ([place] TOP) Unknown Completed [facility] SARS-COV-2 COVID-19 PFIZER MARSHA-SUCROSE VACCINE (CAR[place]INA TOP) Unknown Completed [facility] DTaP, Unspecified Formulation Unknown Completed [facility] DTaP, Unspecified Formulation Unknown Completed [facility] DTaP, Unspecified Formulation Unknown Completed [facility] DTaP, Unspecified Formulation Unknown Completed [facility] DTaP, Unspecified Formulation Unknown Completed [facility] DTAP Unknown Completed [facility] DTAP Unknown Completed [facility] DTAP Unknown Completed [facility] DTAP Unknown Completed [facility] DTaP/HIB Unknown Completed [facility] Influenza Virus Vaccine Quad .5 mL IM 6+ MO (FLUZONE/FLULAVAL/FL UARIX) Unknown Completed [facility] Hep B, Adol or Pedi Dosage Unknown Completed [facility] Hep B, Adol or Pedi Dosage Unknown Completed [facility] Hep B, Adol or Pedi Dosage Unknown Completed [facility] HEPATITIS A Unknown Completed [facility] HEPATITIS A Unknown Completed [facility] Hib-HbOC Unknown Completed [facility] Hib-HbOC Unknown Completed [facility] Hib-HbOC Unknown Completed [facility] Hib-HbOC Unknown Completed [facility] HPV9 Unknown Completed [facility] HPV9 Unknown Completed [facility] IPV Unknown Completed [facility] IPV Unknown Completed [facility] IPV Unknown Completed [facility] Meningococcal Polysaccharide (groups A, C, Y and W-135) conjugate vaccine (MCV4P) Unknown Completed [facility] Meningococcal Polysaccharide (groups A, C, Y and W-135) conjugate vaccine (MCV4P) Unknown Completed [facility] Meningococcal B, OMV Unknown Completed [facility] Meningococcal B, OMV Unknown Completed [facility] MMR Unknown Completed [facility] MMR Unknown Completed [facility] Pneumococcal 7 Conjugate, PCV7 (Prevnar7) Unknown Completed [facility] Pneumococcal 7 Conjugate, PCV7 (Prevnar7) Unknown Completed [facility] Pneumococcal 7 Conjugate, PCV7 (Prevnar7) Unknown Completed [facility] Pneumococcal 7 Conjugate, PCV7 (Prevnar7) Unknown Completed [facility] IPV Unknown Completed [facility] TDAP Unknown Completed [facility] Varicella (varivax)(chicken pox) Unknown Completed [facility] Varicella (varivax)(chicken pox) Unknown Completed [facility] Influenza Virus Vaccine Quad IM, Preserv and ABX Free 6 MO-64 YRS (FLUCELVAX) Unknown Completed [facility] Haemophilus influenzae type b vaccine, conjugate unspecified formulation Unknown Completed [facility] Haemophilus influenzae type b vaccine, conjugate unspecified formulation Unknown Completed [facility] Haemophilus influenzae type b vaccine, conjugate unspecified formulation Unknown Completed [facility] SARS-COV-2 COVID-19 PFIZER MARSHA-SUCROSE VACCINE ([place] TOP) Unknown Completed [facility] SARS-COV-2 COVID-19 PFIZER MARSHA-SUCROSE VACCINE (CAR[place]INA TOP) Unknown Completed [facility] DTaP, Unspecified Formulation Unknown Completed [facility] DTaP, Unspecified Formulation Unknown Completed [facility] DTaP, Unspecified Formulation Unknown Completed [facility] DTaP, Unspecified Formulation Unknown Completed [facility] DTaP, Unspecified Formulation Unknown Completed [facility] DTAP Unknown Completed [facility] DTAP Unknown Completed [facility] DTAP Unknown Completed [facility] DTAP Unknown Completed [facility] DTaP/HIB Unknown Completed [facility] Influenza Virus Vaccine Quad .5 mL IM 6+ MO (FLUZONE/FLULAVAL/FL UARIX) Unknown Completed [facility] Hep B, Adol or Pedi Dosage Unknown Completed [facility] Hep B, Adol or Pedi Dosage Unknown Completed [facility] Hep B, Adol or Pedi Dosage Unknown Completed [facility] HEPATITIS A Unknown Completed [facility] HEPATITIS A Unknown Completed [facility] Hib-HbOC Unknown Completed [facility] Hib-HbOC Unknown Completed [facility] Hib-HbOC Unknown Completed [facility] Hib-HbOC Unknown Completed [facility] HPV9 Unknown Completed [facility] HPV9 Unknown Completed [facility] IPV Unknown Completed [facility] IPV Unknown Completed [facility] IPV Unknown Completed [facility] Meningococcal Polysaccharide (groups A, C, Y and W-135) conjugate vaccine (MCV4P) Unknown Completed [facility] Meningococcal Polysaccharide (groups A, C, Y and W-135) conjugate vaccine (MCV4P) Unknown Completed [facility] Meningococcal B, OMV Unknown Completed [facility] Meningococcal B, OMV Unknown Completed [facility] MMR Unknown Completed [facility] MMR Unknown Completed [facility] Pneumococcal 7 Conjugate, PCV7 (Prevnar7) Unknown Completed [facility] Pneumococcal 7 Conjugate, PCV7 (Prevnar7) Unknown Completed [facility] Pneumococcal 7 Conjugate, PCV7 (Prevnar7) Unknown Completed [facility] Pneumococcal 7 Conjugate, PCV7 (Prevnar7) Unknown Completed [facility] IPV Unknown Completed [facility] TDAP Unknown Completed [facility] Varicella (varivax)(chicken pox) Unknown Completed [facility] Varicella (varivax)(chicken pox) Unknown Completed [facility] Influenza Virus Vaccine Quad IM, Preserv and ABX Free 6 MO-64 YRS (FLUCELVAX) Unknown Completed [facility] Haemophilus influenzae type b vaccine, conjugate unspecified formulation Unknown Completed [facility] Haemophilus influenzae type b vaccine, conjugate unspecified formulation Unknown Completed [facility] Haemophilus influenzae type b vaccine, conjugate unspecified formulation Unknown Completed [facility] SARS-COV-2 COVID-19 PFIZER MARSHA-SUCROSE VACCINE ([place] TOP) Unknown Completed [facility] SARS-COV-2 COVID-19 PFIZER MARSHA-SUCROSE VACCINE ([place] TOP) Unknown Completed [facility] DTaP, Unspecified Formulation Unknown Completed [facility] DTaP, Unspecified Formulation Unknown Completed [facility] DTaP, Unspecified Formulation Unknown Completed [facility] DTaP, Unspecified Formulation Unknown Completed [facility] DTaP, Unspecified Formulation Unknown Completed [facility] DTAP Unknown Completed [facility] DTAP Unknown Completed [facility] DTAP Unknown Completed [facility] DTAP Unknown Completed [facility] DTaP/HIB Unknown Completed [facility] Influenza Virus Vaccine Quad .5 mL IM 6+ MO (FLUZONE/FLULAVAL/FL UARIX) Unknown Completed [facility] Hep B, Adol or Pedi Dosage Unknown Completed [facility] Hep B, Adol or Pedi Dosage Unknown Completed [facility] Hep B, Adol or Pedi Dosage Unknown Completed [facility] HEPATITIS A Unknown Completed [facility] HEPATITIS A Unknown Completed [facility] Hib-HbOC Unknown Completed [facility] Hib-HbOC Unknown Completed [facility] Hib-HbOC Unknown Completed [facility] Hib-HbOC Unknown Completed [facility] HPV9 Unknown Completed [facility] HPV9 Unknown Completed [facility] IPV Unknown Completed [facility] IPV Unknown Completed [facility] IPV Unknown Completed [facility] Meningococcal Polysaccharide (groups A, C, Y and W-135) conjugate vaccine (MCV4P) Unknown Completed [facility] Meningococcal Polysaccharide (groups A, C, Y and W-135) conjugate vaccine (MCV4P) Unknown Completed [facility] Meningococcal B, OMV Unknown Completed [facility] Meningococcal B, OMV Unknown Completed [facility] MMR Unknown Completed [facility] MMR Unknown Completed [facility] Pneumococcal 7 Conjugate, PCV7 (Prevnar7) Unknown Completed [facility] Pneumococcal 7 Conjugate, PCV7 (Prevnar7) Unknown Completed [facility] Pneumococcal 7 Conjugate, PCV7 (Prevnar7) Unknown Completed [facility] Pneumococcal 7 Conjugate, PCV7 (Prevnar7) Unknown Completed [facility] IPV Unknown Completed [facility] TDAP Unknown Completed [facility] Varicella (varivax)(chicken pox) Unknown Completed [facility] Varicella (varivax)(chicken pox) Unknown Completed [facility] Influenza Virus Vaccine Quad IM, Preserv and ABX Free 6 MO-64 YRS (FLUCELVAX) Unknown Completed [facility] Haemophilus influenzae type b vaccine, conjugate unspecified formulation Unknown Completed [facility] Haemophilus influenzae type b vaccine, conjugate unspecified formulation Unknown Completed [facility] Haemophilus influenzae type b vaccine, conjugate unspecified formulation Unknown Completed [facility] SARS-COV-2 COVID-19 PFIZER MARSHA-SUCROSE VACCINE ([place] TOP) Unknown Completed [facility] SARS-COV-2 COVID-19 PFIZER MARSHA-SUCROSE VACCINE ([place] TOP) Unknown Completed [facility] DTaP, Unspecified Formulation Unknown Completed [facility] DTaP, Unspecified Formulation Unknown Completed [facility] DTaP, Unspecified Formulation Unknown Completed [facility] DTaP, Unspecified Formulation Unknown Completed [facility] DTaP, Unspecified Formulation Unknown [facility] [facility] DTAP Unknown Completed [facility] DTAP Unknown Completed [facility] DTAP Unknown Completed [facility] DTAP Unknown Completed [facility] DTaP/HIB Unknown Completed [facility] Influenza Virus Vaccine Quad .5 mL IM 6+ MO (FLUZONE/FLULAVAL/FL UARIX) Unknown Completed [facility] Hep B, Adol or Pedi Dosage Unknown Completed [facility] Hep B, Adol or Pedi Dosage Unknown Completed [facility] Hep B, Adol or Pedi Dosage Unknown Completed [facility] HEPATITIS A Unknown Completed [facility] HEPATITIS A Unknown Completed [facility] Hib-HbOC Unknown Completed [facility] Hib-HbOC Unknown Completed [facility] Hib-HbOC Unknown Completed [facility] Hib-HbOC Unknown Completed [facility] HPV9 Unknown Completed [facility] HPV9 Unknown Completed [facility] IPV Unknown Completed [facility] IPV Unknown Completed [facility] IPV Unknown Completed [facility] Meningococcal Polysaccharide (groups A, C, Y and W-135) conjugate vaccine (MCV4P) Unknown Completed [facility] Meningococcal Polysaccharide (groups A, C, Y and W-135) conjugate vaccine (MCV4P) Unknown Completed [facility] Meningococcal B, OMV Unknown Completed [facility] Meningococcal B, OMV Unknown Completed [facility] MMR Unknown Completed [facility] MMR Unknown Completed [facility] Pneumococcal 7 Conjugate, PCV7 (Prevnar7) Unknown Completed [facility] Pneumococcal 7 Conjugate, PCV7 (Prevnar7) Unknown Completed [facility] Pneumococcal 7 Conjugate, PCV7 (Prevnar7) Unknown Completed [facility] Pneumococcal 7 Conjugate, PCV7 (Prevnar7) Unknown Completed [facility] IPV Unknown Completed [facility] TDAP Unknown Completed [facility] Varicella (varivax)(chicken pox) Unknown Completed [facility] Varicella (varivax)(chicken pox) Unknown Completed [facility] Influenza Virus Vaccine Quad IM, Preserv and ABX Free 6 MO-64 YRS (FLUCELVAX) Unknown Completed [facility] Haemophilus influenzae type b vaccine, conjugate unspecified formulation Unknown Completed [facility] Haemophilus influenzae type b vaccine, conjugate unspecified formulation Unknown Completed [facility] Haemophilus influenzae type b vaccine, conjugate unspecified formulation Unknown Completed [facility] SARS-COV-2 COVID-19 PFIZER MARSHA-SUCROSE VACCINE (CAROLINA TOP) Unknown Completed [facility] SARS-COV-2 COVID-19 PFIZER MARSHA-SUCROSE VACCINE (CAROLINA TOP) Unknown Completed [facility] DTaP, Unspecified Formulation Unknown Completed [facility] DTaP, Unspecified Formulation Unknown Completed [facility] DTaP, Unspecified Formulation Unknown Completed [facility] DTaP, Unspecified Formulation Unknown Completed [facility] DTaP, Unspecified Formulation Unknown Completed [facility] DTAP Unknown Completed [facility] DTAP Unknown Completed [facility] DTAP Unknown Completed [facility] DTAP Unknown Completed [facility] DTaP/HIB Unknown Completed [facility] Influenza Virus Vaccine Quad .5 mL IM 6+ MO (FLUZONE/FLULAVAL/FL UARIX) Unknown Completed [facility] Hep B, Adol or Pedi Dosage Unknown Completed [facility] Hep B, Adol or Pedi Dosage Unknown Completed [facility] Hep B, Adol or Pedi Dosage Unknown Completed [facility] HEPATITIS A Unknown Completed [facility] HEPATITIS A Unknown Completed [facility] Hib-HbOC Unknown Completed [facility] Hib-HbOC Unknown Completed [facility] Hib-HbOC Unknown Completed [facility] Hib-HbOC Unknown Completed [facility] HPV9 Unknown Completed [facility] HPV9 Unknown Completed [facility] IPV Unknown Completed [facility] IPV Unknown Completed [facility] IPV Unknown Completed [facility] Meningococcal Polysaccharide (groups A, C, Y and W-135) conjugate vaccine (MCV4P) Unknown Completed [facility] Meningococcal Polysaccharide (groups A, C, Y and W-135) conjugate vaccine (MCV4P) Unknown Completed [facility] Meningococcal B, OMV Unknown Completed [facility] Meningococcal B, OMV Unknown Completed [facility] MMR Unknown Completed [facility] MMR Unknown Completed [facility] Pneumococcal 7 Conjugate, PCV7 (Prevnar7) Unknown Completed [facility] Pneumococcal 7 Conjugate, PCV7 (Prevnar7) Unknown Completed [facility] Pneumococcal 7 Conjugate, PCV7 (Prevnar7) Unknown Completed [facility] Pneumococcal 7 Conjugate, PCV7 (Prevnar7) Unknown Completed [facility] IPV Unknown Completed [facility] TDAP Unknown Completed [facility] Varicella (varivax)(chicken pox) Unknown Completed [facility] Varicella (varivax)(chicken pox) Unknown Completed [facility] Influenza Virus Vaccine Quad IM, Preserv and ABX Free 6 MO-64 YRS (FLUCELVAX) Unknown Completed [facility] Haemophilus influenzae type b vaccine, conjugate unspecified formulation Unknown Completed [facility] Haemophilus influenzae type b vaccine, conjugate unspecified formulation Unknown Completed [facility] Haemophilus influenzae type b vaccine, conjugate unspecified formulation Unknown Completed [facility] SARS-COV-2 COVID-19 PFIZER MARSHA-SUCROSE VACCINE (CAROLINA TOP) Unknown Completed [facility] SARS-COV-2 COVID-19 PFIZER MARSHA-SUCROSE VACCINE (CAROLINA TOP) Unknown Completed [facility] DTaP, Unspecified Formulation Unknown Completed [facility] DTaP, Unspecified Formulation Unknown Completed [facility] DTaP, Unspecified Formulation Unknown Completed [facility] DTaP, Unspecified Formulation Unknown Completed [facility] DTaP, Unspecified Formulation Unknown Completed [facility] DTAP Unknown Completed [facility] DTAP Unknown Completed [facility] DTAP Unknown Completed [facility] DTAP Unknown Completed [facility] DTaP/HIB Unknown Completed [facility] Influenza Virus Vaccine Quad .5 mL IM 6+ MO (FLUZONE/FLULAVAL/FL UARIX) Unknown Completed [facility] Hep B, Adol or Pedi Dosage Unknown Completed [facility] Hep B, Adol or Pedi Dosage Unknown Completed [facility] Vital Signs Vital Name Observation Time Observation Value Comments S ource Systolic blood pressure 2023-06-05 14:09:00 114 mm[Hg] [facility] Diastolic blood pressure 2023-06-05 14:09:00 76 mm[Hg] [facility] Heart rate 2023-06-05 14:09:00 89 /min [facility] Body temperature 2023-06-05 14:09:00 36.5 Lauren [facility] Respiratory rate 2023-06-05 14:09:00 16 /min [facility] Body height 2023-06-05 14:09:00 167.6 cm [facility] Body weight 2023-06-05 14:09:00 75.978 kg [facility] BMI 2023-06-05 14:09:00 27.04 kg/m2 [facility] Systolic blood pressure 2023-05-22 21:25:00 113 mm[Hg] [facility] Diastolic blood pressure 2023-05-22 21:25:00 69 mm[Hg] [facility] Heart rate 2023-05-22 21:25:00 69 /min [facility] Body temperature 2023-05-22 21:25:00 36.78 Lauren [facility] Respiratory rate 2023-05-22 21:25:00 16 /min [facility] Body height 2023-05-22 21:25:00 167.6 cm [facility] Body weight 2023-05-22 21:25:00 75.342 kg [facility] BMI 2023-05-22 21:25:00 26.81 kg/m2 [facility] Oxygen saturation in Arterial blood by Pulse oximetry 2023-05-22 21:25:00 98 /min [facility] Systolic blood pressure 2023-05-03 14:12:00 117 mm[Hg] [facility] Diastolic blood pressure 2023-05-03 14:12:00 79 mm[Hg] [facility] Heart rate 2023-05-03 14:12:00 85 /min [facility] Body temperature 2023-05-03 14:12:00 36.72 Lauren [facility] Respiratory rate 2023-05-03 14:12:00 16 /min [facility] Body height 2023-05-03 14:12:00 167.6 cm [facility] Body weight 2023-05-03 14:12:00 76.658 kg [facility] BMI 2023-05-03 14:12:00 27.28 kg/m2 [facility] Systolic blood pressure 2022-11-07 13:48:00 122 mm[Hg] [facility] Diastolic blood pressure 2022-11-07 13:48:00 72 mm[Hg] [facility] Heart rate 2022-11-07 13:48:00 68 /min [facility] Respiratory rate 2022-11-07 13:48:00 18 /min [facility] Body height 2022-11-07 13:48:[address] [facility] 2022-11-07 13:48:00 73.029 kg [facility] BMI 2022-11-07 13:48:00 25.99 kg/m2 [facility] Procedures Procedure Date / Time Performed Performing Clinician Source POCT URINALYSIS W/O SPECIFIC GRAVITY 2023-06-05 00:00:00 Dulce Maria Sullivan [facility] INSURANCE CORRESPONDENCE 2023-05-29 06:01:00 Doc tor Unassigned, [place] [facility] POCT URINALYSIS W/O SPECIFIC GRAVITY 2023-05-22 00:00:00 Dulce Maria Sullivan [facility] SCANNED LAB RESULTS 2023-05-18 06:01:00 Doctor Debbi greer, [place] [facility] US OB TRANSVAGINAL 2023-05-03 14:29:23 Dulce Maria Lam [facility] FLU VACC (), 6 MO-64 YRS, .5ML, IM, QUAD (FLUCELVAX) 2023-05-03 14:18:02 Ashley Sullivansol [facility] SCANNED LAB RESULTS 2023-05-03 05:01:00 Doctor Debbi greer, [place] [facility] POCT TEST 2023-05-03 00:00:00 Ashley Hammondssol [facility] POCT URINALYSIS W/O SPECIFIC GRAVITY 2023-05-03 00:00:00 Ashley Sullivansol [facility] ASSIGNMENT OF BENEFITS 2022-11-07 13:36:10 Docto r Unassigned, [place] [facility] Encounters Start Date/Time End Date/Time Encounter Type Admission Type Attending [facility] Care Department Encounter ID Source 2023-07-05 08:00:00 2023-07-05 08:00:00 Outpatient DULCE MARIA GONZALEZ [facility] [id number] [facility] 2023-06-14 08:15:00 2023-06-14 08:19:20 [employer] 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, [facility] 1.2.840.114 350.1.13.10 4.2.7.2.686 [id number] [facility] 2023-06-14 08:15:00 2023-06-14 08:19:20 Outpatient R [facility] [facility], DULCE MARIA [facility] [facility], DULCE MARIA [facility] [id number] [facility] 2023-06-05 08:00:00 2023-06-05 08:23:41 Outpatient R R[facility] S, DULCE MARIA [facility] [facility], DULCE MARIA [facility] [id number] [facility] 2023-06-05 08:00:00 2023-06-05 08:23:41 Routine Visit [place] [facility], Dulce Maria [facility] 1.840.114 350.1.13.10 4.2.7.2.686 [id number] 134 [id number] [facility] 2023-05-29 08:15:00 2023-05-29 08:15:00 Outpatient R RANDOLPH-[place] S, DULCE MARIA [facility] S, DULCE MARIA [facility] [id number] [facility] 2023-05-29 00:00:00 2023-05-29 00:00:00 Orders Only Doctor Unassigned, [place] [facility] 1.840.114 350.1.13.10 4.2.7.2.686 [id number] [facility] 2023-05-28 16:15:00 2023-05-28 16:15:00 Outpatient R R[place]OLPH[place] S, DULCE MARIA [facility] S, DULCE MARIA [facility] [id number] [facility] 2023-05-23 00:00:00 2023-05-23 00:00:00 Telephone [place] sAshleyDulce Maria [facility] 1.840.114 350.1.13.10 4.2.7.2.686 [id number] [facility] 2023-05-22 15:00:00 2023-05-22 15:44:04 Outpatient R RANDOPLH-MODESTO S, DULCE MARIA RANDOLPH[facility] S, [facility] [id number] [facility] 2023-05-22 15:00:00 2023-05-22 15:44:04 Routine Visit Dulce Maria Dave [facility] 1.114 350.1.13.10 4.2.7.2.686 [id number] [facility] 2023-05-21 00:00:00 2023-05-21 00:00:00 [facility] 1.114 350.1.13.10 4.2.7.2.686 [id number] 134 [id number] [facility] 2023-05-18 13:45:00 2023-05-18 13:45:00 Outpatient R DULCE MARIA DAVE [facility] [id number] [facility] 2023-05-18 13:45:00 2023-05-18 13:45:00 [employer] 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, Abdulaziz Loyola Ivon sharpe [facility] 1.114 350.1.13.10 4.2.7.2.686 [id number] [facility] 2023-05-18 00:00:00 2023-05-18 00:00:00 Orders Only Doctor Unassigned, [place] [facility] 1.2.114 350.1.13.10 4.2.7.2.686 [id number] [facility] 2023-05-03 10:30:00 2023-05-03 10:48:05 [employer] 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, Abdulaziz Loyola Ivon sharpe [facility] 1.114 350.1.13.10 4.2.7.2.686 [id number] [facility] 2023-05-03 09:00:00 2023-05-03 09:38:46 Outpatient R DULCE MARIA DAVE MARISOL [facility] [id number] [facility] 2023-05-03 09:00:00 2023-05-03 09:38:46 Initial Visit Ashley Davesol [facility] 1.0.114 350.1.13.10 4.2.7.2.686 [id number] 134 [id number] [facility] 2023-05-03 00:00:00 2023-05-03 00:00:00 Orders Only Doctor Unassigned, [place] [facility] 1..114 350.1.13.10 4.2.7.2.686 [id number] [facility] 2023-04-17 09:23:44 2023-04-17 09:23:44 Outpatient [facility] [id number] Chavez Bearden 2022-11-07 09:30:00 2022-11-07 09:45:00 [employer] 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, Abdulaziz Madden [facility] 1.84.114 350.1.13.10 4.2.7.2.686 [id number] [facility] 2022-11-07 09:30:00 2022-11-07 09:30:00 [facility] [id number] [facility] 2022-11-07 08:30:00 2022-11-07 08:57:21 [facility] 1.114 350.1.13.10 4.2.7.2.686 [id number] [facility] 2022-11-07 00:00:00 2022-11-07 00:00:00 Orders Only Doctor Unassigned, [place] [facility] 1.2.840.114 350.1.13.10 4.2.7.2.686 [id number] [facility] Results Test Description Test Time Test Comments Results Result Co mments Source [facility]O SPECIFIC [id number] 21:27:00* Test Item Value Reference Range Interpretation Comme nts POCT PH U (test code = 3254) n/a 5-8 POCT U LEUK EST (test code = 3263) n/a Negative - Negative POCT U NIT (test code = 3262) n/a Negative - Negati ve POCT U PROT (test code = 3259) negative Negative - Negat cosme POCT U GLU (test code = 3256) negative Negative - Negati ve POCT U KETONE (test code = 3258) n/a Negative - Neg ative POCT U BLD (test code = 3257) n/a Negative - Negati ve [facility] W/O SPECIFIC [id number] 14:12:00* Test Item Value Reference Range Interpretation Comme nts POCT PH U (test code = 3254) n/a 5-8 POCT U LEUK EST (test code = 3263) n/a Negative - Negative POCT U NIT (test code = 3262) n/a Negative - Negati ve POCT U PROT (test code = 3259) negative Negative - Negat cosme POCT U GLU (test code = 3256) negative Negative - Negati ve POCT U KETONE (test code = 3258) n/a Negative - Neg ative POCT U BLD (test code = 3257) n/a Negative - Negati ve [facility]/O SPECIFIC [id number] 14:12:00* Test Item Value Reference Range Interpretation Comme nts POCT PH U (test code = 3254) n/a 5-8 POCT U LEUK EST (test code = 3263) n/a Negative - Negative POCT U NIT (test code = 3262) n/a Negative - Negati ve POCT U PROT (test code = 3259) negative Negative - Negat cosme POCT U GLU (test code = 3256) negative Negative - Negati ve POCT U KETONE (test code = 3258) n/a Negative - Neg ative POCT U BLD (test code = 3257) n/a Negative - Negati ve [facility] URINALYSIS W/O SPECIFIC [id number] 14:12:00* Test Item Value Reference Range Interpretation Comme nts POCT PH U (test code = 3254) n/a 5-8 POCT U LEUK EST (test code = 3263) n/a Negative - Negative POCT U NIT (test code = 3262) n/a Negative - Negati ve POCT U PROT (test code = 3259) negative Negative - Negat cosme POCT U GLU (test code = 3256) negative Negative - Negati ve POCT U KETONE (test code = 3258) n/a Negative - Neg ative POCT U BLD (test code = 3257) n/a Negative - Negati ve [facility] URINALYSIS W/O SPECIFIC [id number] 14:12:00* Test Item Value Reference Range Interpretation Comme nts POCT PH U (test code = 3254) n/a 5-8 POCT U LEUK EST (test code = 3263) n/a Negative - Negative POCT U NIT (test code = 3262) n/a Negative - Negati ve POCT U PROT (test code = 3259) negative Negative - Negat cosme POCT U GLU (test code = 3256) negative Negative - Negati ve POCT U KETONE (test code = 3258) n/a Negative - Neg ative POCT U BLD (test code = 3257) n/a Negative - Negati ve [facility] [id number] 14:11:00* Test Item Value Reference Range Interpretation Comme nts POCT PREG (test code = 1605) Positive On board controls acceptable with C Line (test code = 3574) Yes POCT PREG LOT # (test code = 3574) POCT PREG TEST DATE ( test code = 3576) [facility] [id number] 14:11:00* Test Item Value Reference Range Interpretation Comme nts POCT PREG (test code = 1605) Positive On board controls acceptable with C Line (test code = 3574) Yes POCT PREG LOT # (test code = 3575) POCT PREG TEST DATE ( test code = 3576) [facility] [id number] 14:11:00* Test Item Value Reference Range Interpretation Comme nts POCT PREG (test code = 1605) Positive On board controls acceptable with C Line (test code = 3574) Yes POCT PREG LOT # (test code = 3575) POCT PREG TEST DATE ( test code = 3576) [facility] [id number] 14:11:00* Test Item Value Reference Range Interpretation Comme nts POCT PREG (test code = 1605) Positive On board controls acceptable with C Line (test code = 3574) Yes POCT PREG LOT # (test code = 3575) POCT PREG TEST DATE ( test code = 3576) [facility]
[2023-06-21 10:35] LABS: Absolute Lymphocytes (CBC) 1.4 K/uL (0.7-4.9); Hematocrit 37.4 % (36.0-45.0); Lymphocytes % 14.4 % (15.3-44.8); MCV 92.9 fL (80-100); Platelets 278 thou/uL (152-406); RBC Red Blood Cell Count 4.03 M/uL (3.86-4.86)
--- NOTE | 2023-06-21 10:45 | RAD REPORT ---
EXAM DESCRIPTION: US - OB Limited - 06/21/2023 10:03 am CLINICAL HISTORY: VAGINAL BLEEDING COMPARISON: No comparisons TECHNIQUE: Sonographic grayscale and color flow images of a second -trimester were obtaine d through transabdominal approach. FINDINGS: A single live intrauterine is identified. Abdominal circumference: 12.37 cm, corresponding to gestational age of 18 weeks, 0 days. Femur length: 2.64 cm, corresponding to gestational age of 18 weeks, 0 days. heart rate: 150 BPM. Fetus is in cephalic position. Placenta has formed posteriorly. The lower edge of the placenta lies within 1.2 cm from the posterior margin of the internal cervical os. Cervix appears well apposed. Subjectively normal volume of amniotic fluid. Maternal ovaries are not visualized. No free fluid. IMPRESSION: 1. Single live intrauterine . 2. Lower placental edge lies within 1.2 cm from the posterior margin of the internal cervical os, wit hout discrete coverage of the cervix. Close clinical follow-up and consideration of short-term obstet radha ultrasound follow-up recommended 3. Calculated gestational age: 18 weeks, 0 days. Estimated due date by ultrasound: 11/22/2023.
[2023-06-21 11:08] LABS: Albumin 3.2 g/dL (3.4-5.0); Bilirubin Total 0.2 mg/dL (0.2-1.0); Potassium 3.7 mEq/L (3.5-5.1); Protein, Total 6.9 g/dL (6.4-8.2)
--- NOTE | 2023-06-21 11:23 | ER ---
Nurse's Notes [facility] Name: Kavya Zamarripa Age: 18 yrs Sex: Female : 2005 Arrival Date: 06/21/2023 Time: 09:26 Bed 20 Private MD: Diagnosis: Abnormal uterine and vaginal bleeding, unspecified;VAGINAL BLEEDING DURING Presentation: 06/21 10:00 Chief complaint: Patient states: vaginal bleeding that started this morning. States she cp4 is 4-5 months . First . 10:00 Coronavirus screen: Vaccine status: Patient reports receiving the 2nd dose of the covid cp4 vaccine. Client denies travel out of the [place] in the last 14 days. At this time, the client does not indicate any symptoms associated with coronavirus-19. Ebola Screen: Patient negative for fever greater than or equal to 101.5 degrees Fahrenheit, and additional compatible Ebola Virus Disease symptoms Patient denies exposure to infectious person. Patient denies travel to an Ebola-affected area in the 21 days before illness onset. No symptoms or risks identified at this time. Initial Sepsis Screen: Does the patient meet any 2 criteria? No. Patient's initial sepsis screen is negative. Does the patient have a suspected source of infection? No. Patient's initial sepsis screen is negative. Risk Assessment: Do you want to hurt yourself or someone else? Patient reports no desire to harm self or others. Onset of symptoms was June 21, 2023. 10:00 Method Of Arrival: Ambulatory cp4 10:00 Acuity: CORDELIA 3 cp4 Triage Assessment: 10:22 General: Appears in no apparent distress. Behavior is calm, cooperative, appropriate cp4 for age. Pain: Complains of pain in pelvic Pain currently is 6 out of 10 on a pain scale. : Reports vaginal bleeding that is bright red, with clots. 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 - Social history:: Smoking status: Patient denies any tobacco usage or history of. Screenin:35 [facility] ED Fall Risk Assessment (Adult) History of falling in the last 3 months, cp4 including since admission No falls in past 3 months (0 pts) Confusion or Disorientation No (0 pts) Intoxicated or Sedated No (0 pts) Impaired Gait No (0 pts) Mobility Assist Device Used No (0 pt) Altered Elimination No (0 pt) Score/Fall Risk Level 0 - 2 = Low Risk Oriented to surroundings, Maintained a safe environment, Educated pt \T\ family on fall prevention, incl call for assistance when getting out of bed, Assessed \T\ reinforced patient's understanding of fall precautions, Hourly rounding (assess needs \T\ fall precautionary measures) done. Abuse screen: Denies threats or abuse. Nutritional screening: No deficits noted. Tuberculosis screening: No symptoms or risk factors identified. Assessment: 10:35 Reassessment: No changes from previously documented assessment. : Last void was cp4 June 21, 2023. Vital Signs: 10:00 BP 102 / 68; Pulse 87; Resp 18; Temp 98.6; Pulse Ox 99% ; Weight 76.2 kg; Height 5 ft. cp4 6 in. ; Pain 6/10; 11:37 BP 104 / 65; Pulse 84; Resp 16; Pulse Ox 100% ; cp4 10:00 Body Mass Index 27.12 (76.20 kg, 167.64 cm) cp4 10:00 Pain Scale: Adult cp4 ED Course: 09:30 Patient arrived in ED. im 09:30 Shoaib Chavez MD is Attending Physician. ec2 09:56 Talya Lopez is Primary Nurse. cp4 09:56 US OB Limited In Process Unspecified. EDMS 10:19 Inserted saline lock: 20 gauge in right antecubital area, using aseptic technique. ds4 Blood collected. 10:22 Triage completed. cp4 10:22 Arm band placed on right wrist. Patient placed in an exam room, on a stretcher. cp4 10:35 No provider procedures requiring assistance completed. cp4 10:35 Bed in low position. Call light in reach. Side rails up X 1. cp4 11:37 intact, bleeding controlled, No redness/swelling at site. Pressure dressing applied. cp4 11:37 Provided Education on: vaginal bleeding. cp4 Administered Medications: No medications were administered Medication: 10:35 VIS not applicable for this client. cp4 Outcome: 11:22 Discharge ordered by . ec2 11:37 Discharged to home ambulatory, cp4 11:37 Condition: stable 11:37 Discharge instructions given to patient, Instructed on discharge instructions, follow up and referral plans. Demonstrated understanding of instructions, follow-up care, 11:46 Patient left the ED. cp4 Signatures: Dispatcher [employer] Esteban Lopez ds4 Rhoda Bruce Edwin, MD MD ec2 Talya Lopez cp4
--- NOTE | 2023-06-21 11:23 | EDPHYS ---
Physician Documentation [facility] Name: Kavya Zamarripa Age: 18 yrs Sex: Female : 2005 Arrival Date: 06/21/2023 Time: 09:26 Bed 20 Private MD: ED Physician Shoaib Chavez HPI: 06/21 10:24 This 18 yrs old Female presents to ER via Ambulatory with complaints of ec2 Vaginal Bleeding, Abdominal Cramping, 16 weeks . 10:24 Patient arrives today for evaluation of vaginal bleeding. States that she is ec2 approximately 16 weeks , has had confirmatory IUP, states her is otherwise uncomplicated. Patient is unsure of her ABO type. Patient reports some lower abdominal cramping. Denies any vomiting or diarrhea otherwise has been in normal state of health.. 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 - Social history:: Smoking status: Patient denies any tobacco usage or history of. ROS: 10:24 Constitutional: as per hpi ec2 Exam: 10:24 Constitutional: GEN: NAD Head: atraumatic Eyes: EOMI Ears: External ears are ec2 normal. CV: regular rate LUNGS: no respiratory distress ABD: non-distended, soft, nontender, not guarding, not rigid SKIN: no evidence of rashes MSK: no evidence of trauma NEURO: moves all extremities equally Vital Signs: 10:00 BP 102 / 68; Pulse 87; Resp 18; Temp 98.6; Pulse Ox 99% ; Weight 76.2 kg; Height 5 ft. cp4 6 in. ; Pain 6/10; 11:37 BP 104 / 65; Pulse 84; Resp 16; Pulse Ox 100% ; cp4 10:00 Body Mass Index 27.12 (76.20 kg, 167.64 cm) cp4 10:00 Pain Scale: Adult cp4 MDM: 09:31 Patient medically screened. ec2 10:24 Data reviewed: vital signs. ED course: Patient arrives today due to concern for vaginal ec2 bleeding in the setting of . Examination remarkable for well-appearing nontoxic individual who has reassuring vital signs. Will obtain lab work, ultrasound and reassess the patient. Currently considering abnormal bleeding during , miscarriage, complication.. 10:51 ED course: CBC is reassuring. Ultrasound shows live IUP, possible borderline placenta ec2 previa noted that she can follow-up outpatient with. . 11:16 ED course: Metabolic profile is reassuring. hCG appropriately elevated, ABO Rh is O+, ec2 will defer RhoGAM. On reassessment patient is well-appearing in no acute distress. Will discharge home. Return precautions given. No return of bleeding. . 06/21 09:31 Order name: CBC with Diff; Complete Time: 10:51 ec2 06/21 09:31 Order name: CMP; Complete Time: 11:16 ec2 06/21 09:31 Order name: Abo/rh Typing; Complete Time: 11:16 ec2 06/21 09:31 Order name: HCG-Quantitative; Complete Time: 11:16 ec2 06/21 09:31 Order name: US OB Limited; Complete Time: 10:51 ec2 Administered Medications: No medications were administered Disposition Summary: 06/21/23 11:22 Discharge Ordered Notes: Location: Home ec2 Condition: Stable ec2 Diagnosis - Abnormal uterine and vaginal bleeding, unspecified ec2 - VAGINAL BLEEDING DURING ec2 Followup: ec2 - With: Private Physician - When: - Reason: Recheck today's complaints Discharge Instructions: - Discharge Summary Sheet ec2 - Vaginal Bleeding During , Second Trimester, [id number] ec2 Forms: - Medication Reconciliation Form ec2 - Thank You Letter ec2 - Antibiotic Education ec2 - Prescription Opioid Use ec2 - Patient Portal Instructions ec2 - Leadership Thank You Letter ec2 Signatures: Dispatcher [employer] Shoaib Larkin MD MD ec2 Talya Lopez cp4
[2023-06-21 11:52] VITALS: BP 104/65; TEMP 98.6; O2SAT 100
== END 2023-06-21 11:46 | disposition home or self-care (01) ==
LOC: ER 09:26
DX: O20.9 Hemorrhage in early pregnancy, unspecified (principal); Z3A.16 16 weeks gestation of pregnancy
CPT/HCPCS: 36415; 76815; 80053; 84702; 85025; 86900; 86901; 99283